=== PATIENT | male | born 1980 | race Caucasian/White ===

== ENCOUNTER 2021-05-04 19:06 | Observation (INO) ==
[2021-05-04 19:15] VITALS: TEMP 97.9
--- NOTE | 2021-05-04 22:22 | Emergency Department Note ---
History of Present Illness General Chief complaint: Leg Injury/Pain Stated complaint: LEG PAIN Time Seen by Provider: 05/04/21 22:01 History of Present Illness Maximum Pain Intensity: 0 This is a 41-year-old male that presents to the emergency department via private vehicle with complaints of "leg pain, swelling". The patient notes that this past Tuesday he began with what he describes as inability to lift his right foot/ankle. Specifically he is not able to dorsiflex this region. No known trauma or injury. When he bears weight pain shoots from the ankle up the right lateral calf region to the right knee. He does note a history of DVT in the right leg in 2019 which was treated with Xarelto x2 years. He has been off of the Xarelto now for a few months. He denies any known trauma or injury. No fevers, chills, chest pain or shortness of breath. Other than the DVT he denies any pertinent past medical history, surgeries or allergies. He notes that when he is ambulating he has to lift his entire right leg so his right foot does not drag on the ground. Home Medications Medication Instructions Recorded Confirmed Type triamterene 37.5 1 tab PO DAILY 06/12/20 05/04/21 History mg-hydrochlorothiazide 25 mg tablet aspirin 81 mg tablet,delayed 81 mg PO DAILY 05/04/21 05/04/21 History release Allergies Allergy/AdvReac Type Severity Reaction Status Date / Time No Known Allergies Allergy Verified 05/04/21 22:27 Past Med/Surg History Medical History (Updated 05/05/21 @ 01:49 by Jeancarlos Car PA-C) Hx of deep venous thrombosis Surgical History No pertinent past surgical history Social History Smoking Status: Never smoker Feels Safe at Home: Yes Review of Systems A total of 6 systems reviewed and were otherwise negative Physical Exam Vital Signs Vital Signs - 24 hr 05/04/21 19:12 05/04/21 22:40 Temperature 36.6 C Temperature Source Temporal Artery Scan Pulse Rate 66 62 Pulse Rate from SpO2 Sensor 62 Respiratory Rate 16 24 Blood Pressure 134/89 142/89 H Blood Pressure Mean 104 106 Blood Pressure Position Sitting Pulse Oximetry 96 97 Oxygen Delivery Method Room Air Room Air Sepsis Recent Fever Within 48 Hours No Sepsis New/Unexplained Change in Mental Status No Sepsis Action Taken by Nursing No Action Required VITAL SIGNS - Vital signs and nursing notes were reviewed. Stable and afebrile. GENERAL -41-year-old male appearing his stated age who is in no acute distress. Communicates well with provider and answers questions appropriately. SKIN - Without rashes. No meningeal or petechial rash. The skin overlying the right lower extremity does not reveal any evidence of erythema. There is perhaps mild edema circumferentially to the right lower extremity. HEAD - NC/AT. EYES - PERRL with EOMI bilaterally. EARS - No deformities of external structures noted on gross examination bilaterally. NECK - No nuchal rigidity. LUNGS - Chest wall symmetric without accessory muscle use, intercostals retractions, or central cyanosis. Normal vesicular breath sounds CTA B/L. No wheezes, rales, or rhonchi appreciated. CARDIAC - RRR with S1/S2. No murmur, rubs, or gallops appreciated. EXTREMITIES - No clubbing or peripheral cyanosis. +5/5 strength noted in UE/LE bilaterally. Patient is not able to actively dorsiflex the right foot/ankle. Right dorsalis pedis pulse intact and symmetric compared to the left. NEUROLOGIC - Cranial nerves II through XII grossly intact. Sensory intact to light touch throughout. PSYCH - A&Ox3 and cooperates fully with examiner. Pt is very pleasant and interacts well with examiner. Medical Decision Making Laboratory Data Result diagrams: 05/04/21 22:31 05/04/21 22:31 Lab Results 05/04/21 05/04/21 05/04/21 Range/Units 22:31 22:31 22:31 WBC 5.05 (4.8-10.8) K/uL RBC 4.69 L (4.7-6.1) M/uL Hgb 15.0 (14.0-18.0) g/dL Hct 45.1 (42-52) % MCV 96.2 (80-100) fL MCH 32.0 (25-34) pg MCHC 33.3 (32-36) g/dL RDW Std Deviation 48.2 H (36.4-46.3) fL RDW Coeff of Maggie 13.7 (11.5-14.5) % Plt Count 188 (130-400) K/uL MPV 11.9 H (7.4-10.4) fL Immature Gran % (Auto) 0.0 % Neut % (Auto) 58.8 % Lymph % (Auto) 28.1 % Hutchinson % (Auto) 8.3 % Eos % (Auto) 4.6 % Baso % (Auto) 0.2 % Neut # (Auto) 2.97 (1.4-6.5) K/uL Lymph # (Auto) 1.42 (1.2-3.4) K/uL Hutchinson # (Auto) 0.42 (0.11-0.59) K/uL Eos # (Auto) 0.23 (0-0.5) K/uL Baso # (Auto) 0.01 (0-0.2) K/uL Immature Gran # (Auto) 0.00 (0.00-0.02) K/uL PT 10.3 (9.0-12.0) Seconds INR 1.0 (0.9-1.1) APTT 25.7 (21.0-31.0) Seconds PTT Ratio 1.0 Sodium 142 (136-145) mmol/L Potassium 3.5 (3.5-5.1) mmol/L Chloride 108 H (98-107) mmol/L Carbon Dioxide 28 (21-32) mmol/L Anion Gap 6.0 (3-11) BUN 18 (7-18) mg/dl Creatinine 1.05 (0.6-1.4) mg/dl Est Cr Clr Drug Dosing 123.9 ml/min Est GFR ( Amer) 102.4 ml/min Est GFR (Non-Af Amer) 88.4 ml/min BUN/Creatinine Ratio 16.9 (10-20) Glucose 130 H (70-99) mg/dl Calcium 9.0 (8.5-10.1) mg/dl Magnesium 2.2 (1.8-2.4) mg/dl Total Bilirubin 0.3 (0.2-1) mg/dl AST 28 (15-37) U/L ALT 33 (12-78) Alkaline Phosphatase 61 (45-117) U/L Total Protein 8.0 (6.4-8.2) gm/dl Albumin 3.8 (3.4-5.0) gm/dl Globulin 4.2 H (2.5-4.0) gm/dl Albumin/Globulin Ratio 0.9 (0.9-2) Imaging Data Radiologist's Impression: CT HEAD: No ICH, mass effect or edema. No evidence of acute cortical stroke. Radiologist: Dayanna Obregon M.D. Study ready at 00:13 and initial results transmitted at 00:16 US VENOUS RIGHT LOWER EXTREMITY: No acute DVT demonstrated. Radiologist: Dayanna Obregon M.D. Study ready at 21:16 and initial results transmitted at 21:19 [facility] Narrative Patient was seen and evaluated as above in room B12. Review was performed of triage nursing notes and vital signs. I did review pertinent previous visits and patient history. After obtaining a thorough history and physical examination the above work up was performed. Patient presents to us today with dropfoot to the right lower extremity. No known trauma or injury. Vital signs stable. No other areas involved on my exam. No other focal neurologic deficit. Patient does have some mild back pain. Options of care were discussed with the patient. IV access was established. Labs were drawn. Case also discussed with the attending physician. Patient was seen during a period of high volume and acuity. He already had an ultrasound performed of the right lower extremity in triage. The ultrasound results are as above. I also discussed this with the on-call radiologist noting the patient's history of DVT and patient reporting chronic thrombus. It does appear that he does indeed have a chronic thrombus but this clot burden has not increased since previous exam and there is no acute DVT. Patient sent for CTA of the head and neck to further eval emergent etiologies of his presentation. Unfortunately the patient removed himself from the CT scan table right after they injected the dye therefore they were not able to proceed with the imaging. As this was a time sensitive picture, options were then to either rebolused him with the contrast to obtain the pictures versus other imaging modality. I discussed this with the patient. At this time we will refrain from recontrast bolusing him and proceed with MRIs. Case signed out to Joshua Hoyt PA-C pending MRI results. Patient may require inpatient management depending on findings. Please refer to further documentation regarding his stay. Case was discussed with the attending physician, Dr. Cano EKG was reviewed by myself and found to be sinus bradycardia at a rate of 59 beats per minute and per my interpretation reveals no ST elevation. No previous for comparison. QTc 407. QRS 86. Patient was seen during a period of high volume and acuity during the COVID-19 pandemic. GCS: 15 In the evaluation and treatment of this patient the following differential diagnoses were entertained: Compartment syndrome, compressive neuropathy, p eroneal nerve palsy, lumbar radiology, intracranial etiology, among others. Impression & Plan Right foot drop Discharge Plan Visit Data Chief Complaint: Leg Injury/Pain Stated Complaint: LEG PAIN ED Provider: Jackson Cano ED Midlevel Provider: Joshua Hoyt Discharge Problem: Right foot drop Patient Disposition: Still a Patient Condition: Good Forms Stand Alone Forms: My [facility] Prescriptions Prescriptions: No Action triamterene-hydrochlorothiazid 37.5-25 mg tablet 1 tab PO DAILY RF: 0 aspirin 81 mg Tablet,Delayed Release (Dr/Ec) 81 mg PO DAILY RF: 0 Referrals Referrals: Arvind Evangelista [Primary Care Provider] -
[2021-05-04 22:48] LABS: Basophils # (auto) 0.01 K/uL (0-0.2); Basophils % (auto) 0.2 %; Eosinophils # (auto) 0.23 K/uL (0-0.5); Eosinophils % (auto) 4.6 %; Hematocrit (blood only) 45.1 % (42-52); Lymphocytes # (auto) 1.42 K/uL (1.2-3.4); Lymphocytes % (auto) 28.1 %; Mean Corpuscular Hgb Conc 33.3 g/dL (32-36); Mean Corpuscular Volume 96.2 fL (80-100); Mean Platelet Volume 11.9 fL (7.4-10.4); Monocytes # (auto) 0.42 K/uL (0.11-0.59); Monocytes % (auto) 8.3 %; Neutrophils # (auto) 2.97 K/uL (1.4-6.5); Neutrophils % (auto) 58.8 %; Platelet Count 188 K/uL (130-400); RDW Coefficient of Variation 13.7 % (11.5-14.5); RDW Standard Deviation 48.2 fL (36.4-46.3); Red Blood Count 4.69 M/uL (4.7-6.1); White Blood Count 5.05 K/uL (4.8-10.8)
[2021-05-04 23:05] LABS: Albumin Level 3.8 gm/dl (3.4-5.0); BUN Creatinine Ratio 16.9 (10-20); Creatinine Clr Calc Pharmacy 123.9 ml/min; Est GFR (African American) 102.4 ml/min; Est GFR (Non-African American) 88.4 ml/min; Magnesium 2.2 mg/dl (1.8-2.4); Potassium 3.5 mmol/L (3.5-5.1)
[2021-05-04 23:08] LABS: Albumin Globulin Ratio 0.9 (0.9-2); Bilirubin,Total 0.3 mg/dl (0.2-1); Globulin 4.2 gm/dl (2.5-4.0)
[2021-05-04 23:10] LABS: Partial Thromboplastin Time 25.7 Seconds (21.0-31.0); Prothrombin Time 10.3 Seconds (9.0-12.0)
[2021-05-05] MEDS ORDERED: GADOBUTROL 65ML VIAL IV ONE (02:04)
[2021-05-05 03:21] LABS: Lyme Ab IgG w/WB Rflx Negative (Negative); Lyme Ab IgM w/WB Rflx Negative (Negative)
--- NOTE | 2021-05-05 04:24 | Emergency Department Note ---
Impression & Plan Right foot drop ED Provider Note Patient care was assumed from Jeancarlos Car PA-C, at the time of shift change. Please see Mr. Car's dictation for full history of present illness and emergency department course prior to my assumption of care. In short, the patient has a right foot drop that is new to him over the past 48 hours. He has had nursing protocol orders initiated, and ultrasound of the leg and CT scan of his head are without acute findings. At the time of shift change we were awaiting MRIs of his head, neck, and lumbar spine. MRI results are as below: Preliminary Findings Only See Final Report For Complete Findings MRI HEAD : Comparison: CT head 05/04/21 No acute infarct or intracranial hemorrhage. No mass effect or hydrocephalus. Minimal white matter T2/FLAIR hyperintensities, nonspecific. Preliminary Findings Only See Final Report For Complete Findings MRA HEAD : No evidence of vascular occlusion, significant stenosis, or aneurysm. Preliminary Findings Only See Final Report For Complete Findings MRA NECK : No evidence of vessel occlusion or hemodynamically significant stenosis. Preliminary Findings Only See Final Report For Complete Findings MRI L SPINE : No evidence of acute fracture. Multilevel degenerative changes. No prior provided for comparison. L3-L4, posterior disc bulge and facet arthropathy/ligamentous hypertrophy causes hzio-[id number] canal and mild bilateral foraminal stenosis. L4-L5, posterior disc bulge/extrusion and facet arthropathy/ligamentous hypertrophy causes yfuw-[id number]-elcajmnm canal and mild bilateral foraminal stenosis. L5-S1 posterior disc/osteophyte complex and facet arthropathy cause [id number]-[id number] right and mild left foraminal stenosis. Mild left lateral recess and minimal canal stenosis. Endplate degenerative changes The patient was reevaluated multiple times with course of his stay. He does not have any worsening or evolution of his symptoms. He is able to rest comfortably here in the ER bed. Overall his presentation is concerning as he does have a foot drop on exam. This could be from his L-spine, but will likely need further evaluation of his symptoms. The case was discussed with the on-call hospitalist who agreed to evaluate the patient here in the ER. Please see their dictation for further patient course, plan, and disposition. Past Med/Surg History Medical History (Updated 05/05/21 @ 01:49 by Jeancarlos Car PA-C) Hx of deep venous thrombosis Surgical History No pertinent past surgical history Social History Smoking Status: Never smoker Feels Safe at Home: Yes Allergies Allergies Allergy/AdvReac Type Severity Reaction Status Date / Time No Known Allergies Allergy Verified 05/04/21 22:27 Home Meds Home Medications Medication Instructions Recorded Confirmed triamterene 37.5 1 tab PO DAILY 06/12/20 05/04/21 mg-hydrochlorothiazide 25 mg tablet aspirin 81 mg tablet,delayed 81 mg PO DAILY 05/04/21 05/04/21 release Results & Data (ED) Vital Signs Vital Signs - 24 hr 05/04/21 19:12 05/04/21 22:15 05/04/21 22:40 Temperature 36.6 C Temperature Source Temporal Artery Scan Pulse Rate 66 78 62 Pulse Rate from SpO2 Sensor 62 Respiratory Rate 16 20 24 Blood Pressure 134/89 142/89 H Blood Pressure Mean 104 106 Blood Pressure Position Sitting Pulse Oximetry 96 98 97 Oxygen Delivery Method Room Air Room Air Room Air Sepsis Recent Fever Within 48 Hours No Sepsis New/Unexplained Change in Mental Status No Sepsis Action Taken by Nursing No Action Required 05/04/21 23:52 05/05/21 01:54 Temperature Temperature Source Pulse Rate 59 L 58 L Pulse Rate from SpO2 Sensor 57 L 58 L Respiratory Rate 21 Blood Pressure 132/79 126/72 Blood Pressure Mean 96 90 Blood Pressure Position Pulse Oximetry 96 96 Oxygen Delivery Method Room Air Room Air Sepsis Recent Fever Within 48 Hours Sepsis New/Unexplained Change in Mental Status Sepsis Action Taken by Nursing Laboratory Data Result diagrams: 05/04/21 22:31 05/04/21 22:31 Lab Results 05/04/21 05/04/21 05/04/21 Range/Units 22:31 22:31 22:31 WBC 5.05 (4.8-10.8) K/uL RBC 4.69 L (4.7-6.1) M/uL Hgb 15.0 (14.0-18.0) g/dL Hct 45.1 (42-52) % MCV 96.2 (80-100) fL MCH 32.0 (25-34) pg MCHC 33.3 (32-36) g/dL RDW Std Deviation 48.2 H (36.4-46.3) fL RDW Coeff of Maggie 13.7 (11.5-14.5) % Plt Count 188 (130-400) K/uL MPV 11.9 H (7.4-10.4) fL Immature Gran % (Auto) 0.0 % Neut % (Auto) 58.8 % Lymph % (Auto) 28.1 % Nash % (Auto) 8.3 % Eos % (Auto) 4.6 % Baso % (Auto) 0.2 % Neut # (Auto) 2.97 (1.4-6.5) K/uL Lymph # (Auto) 1.42 (1.2-3.4) K/uL Nash # (Auto) 0.42 (0.11-0.59) K/uL Eos # (Auto) 0.23 (0-0.5) K/uL Baso # (Auto) 0.01 (0-0.2) K/uL Immature Gran # (Auto) 0.00 (0.00-0.02) K/uL PT 10.3 (9.0-12.0) Seconds INR 1.0 (0.9-1.1) APTT 25.7 (21.0-31.0) Seconds PTT Ratio 1.0 Sodium 142 (136-145) mmol/L Potassium 3.5 (3.5-5.1) mmol/L Chloride 108 H (98-107) mmol/L Carbon Dioxide 28 (21-32) mmol/L Anion Gap 6.0 (3-11) BUN 18 (7-18) mg/dl Creatinine 1.05 (0.6-1.4) mg/dl Est Cr Clr Drug Dosing 123.9 ml/min Est GFR ( Amer) 102.4 ml/min Est GFR (Non-Af Amer) 88.4 ml/min BUN/Creatinine Ratio 16.9 (10-20) Glucose 130 H (70-99) mg/dl Calcium 9.0 (8.5-10.1) mg/dl Magnesium 2.2 (1.8-2.4) mg/dl Total Bilirubin 0.3 (0.2-1) mg/dl AST 28 (15-37) U/L ALT 33 (12-78) Alkaline Phosphatase 61 (45-117) U/L Total Protein 8.0 (6.4-8.2) gm/dl Albumin 3.8 (3.4-5.0) gm/dl Globulin 4.2 H (2.5-4.0) gm/dl Albumin/Globulin Ratio 0.9 (0.9-2) Lyme Disease IgG Ab (Negative) Lyme Disease IgM Ab (Negative) 05/05/21 Range/Units 02:24 WBC (4.8-10.8) K/uL RBC (4.7-6.1) M/uL Hgb (14.0-18.0) g/dL Hct (42-52) % MCV (80-100) fL MCH (25-34) pg MCHC (32-36) g/dL RDW Std Deviation (36.4-46.3) fL RDW Coeff of Maggie (11.5-14.5) % Plt Count (130-400) K/uL MPV (7.4-10.4) fL Immature Gran % (Auto) % Neut % (Auto) % Lymph % (Auto) % Nash % (Auto) % Eos % (Auto) % Baso % (Auto) % Neut # (Auto) (1.4-6.5) K/uL Lymph # (Auto) (1.2-3.4) K/uL Nash # (Auto) (0.11-0.59) K/uL Eos # (Auto) (0-0.5) K/uL Baso # (Auto) (0-0.2) K/uL Immature Gran # (Auto) (0.00-0.02) K/uL PT (9.0-12.0) Seconds INR (0.9-1.1) APTT (21.0-31.0) Seconds PTT Ratio Sodium (136-145) mmol/L Potassium (3.5-5.1) mmol/L Chloride (98-107) mmol/L Carbon Dioxide (21-32) mmol/L Anion Gap (3-11) BUN (7-18) mg/dl Creatinine (0.6-1.4) mg/dl Est Cr Clr Drug Dosing ml/min Est GFR ( Amer) ml/min Est GFR (Non-Af Amer) ml/min BUN/Creatinine Ratio (10-20) Glucose (70-99) mg/dl Calcium (8.5-10.1) mg/dl Magnesium (1.8-2.4) mg/dl Total Bilirubin (0.2-1) mg/dl AST (15-37) U/L ALT (12-78) Alkaline Phosphatase (45-117) U/L Total Protein (6.4-8.2) gm/dl Albumin (3.4-5.0) gm/dl Globulin (2.5-4.0) gm/dl Albumin/Globulin Ratio (0.9-2) Lyme Disease IgG Ab Negative (Negative) Lyme Disease IgM Ab Negative (Negative) Administered Medications Discontinued Medications Gadobutrol (Gadobutrol 65ml Vial) 10.5 ml IV ONCE ONE Stop: 05/05/21 02:05 Last Admin: 05/05/21 02:04 Dose: 10.5 ml Documented by: [id number] Discharge Plan Visit Data Chief Complaint: Leg Injury/Pain Stated Complaint: LEG PAIN ED Provider: Jackson Cano ED Midlevel Provider: Joshua Hoyt Discharge Problem: Right foot drop Patient Disposition: Still a Patient Condition: Good Forms Stand Alone Forms: [facility] Prescriptions Prescriptions: No Action triamterene-hydrochlorothiazid 37.5-25 mg tablet 1 tab PO DAILY RF: 0 aspirin 81 mg Tablet,Delayed Release (Dr/Ec) 81 mg PO DAILY RF: 0 Referrals Referrals: Arvind Evangelista [Primary Care Provider] -
--- NOTE | 2021-05-05 05:45 | History & Physical Report ---
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 mononeuropathy multiplex; MS possible as T2/flair hyperintensities seen on MRI, although these are minimal and nonspecific; Will check A1c as Charcot Moira Tooth is another potential cause for presentation, less likely Guillain [place] given unilateral presentation and no preceding viral prodrome or vaccination; also unlikely compartment syndrome as minimal pain. MRI lumbar with mild foraminal stenosis throughout and mild canal stenosis on [facility] report Ultrasound with no acute DVT - Checking folate and B12 although not anemic - could consider neurology consultation for EMG studies of the peroneal nerve - could consider vascular studies of the leg - PT ordered for brace - could consider avoiding crossing legs and knee pad over lateral knee to avoid further compression DVT: Lovenox Diet: regular Code: full History of Present Illness Chief Complaint: right foot drop Primary Care Provider: Arvind Evangelista Richard Huffman is a previously healthy individual presenting with right foot drop on Tuesday. 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 He has not had any prior URI symptoms or diagnosis of cancer or IVDU. He has not had any recent vaccinations or diarrhea. He has some mild pain on the back of his calf. Some mild back pain without radiation down his leg. No noted sensory loss or numbness or tingling down the leg. No trauma to the area. He drinks about 6 drinks/ week on average but slightly more during his conference. Allergies only to pollen. He denies groin paresthesia, bowel incontinence, or urinary retention. No tick bites. Recent travel only notable of going to [facility] for conference. Allergies Allergy/AdvReac Type Severity Reaction Status Date / Time No Known Allergies Allergy Verified 05/04/21 22:27 Home Medications Medication Instructions Recorded Confirmed Type triamterene 37.5 1 tab PO DAILY 06/12/20 05/04/21 History mg-hydrochlorothiazide 25 mg tablet aspirin 81 mg tablet,delayed 81 mg PO DAILY 05/04/21 05/04/21 History release Past Med/Surg History Medical History Hx of deep venous thrombosis Surgical History No pertinent past surgical history Social History Smoking Status: Never smoker Feels Safe at Home: Yes Review of Systems Review of Systems: Constitutional: denies fevers, chills, nausea, vomiting, weight loss not related to diet or exercise admits occasional night sweats Head: denies trauma Neurologic: denies numbness or tingling admits focal weakness ENT: denies rhinorrhea, stuffiness, sneezing GI: denies constipation : denies urinary frequency, pain or urgency Physical Exam Constitutional: well developed and well nourished; no acute distress Eyes: PERRL, conjunctivae normal, anicteric sclerae ENMT: external ear and nose normal, oropharynx normal Neck: normal visual inspection Respiratory: normal respiratory effort, lungs clear to auscultation Cardiovascular: RRR, no murmur, no edema Gastrointestinal (Abdomen): normal bowel sounds, soft, nontender, no hepatosplenomegaly Musculoskeletal: Right foot: Inspection: - swelling of the right foot Palpation: - no tenderness over the fibular head, popliteal space Strength: - able to dorsiflex slightly without gravity - toe extension intact Sensation: - intact to L4, L5, S1 Reflexes: - 2+ symmetric bilaterally at the patella Special testing: - negative Tinel over tarsal tunnel Neurologic: + focal motor deficit Psychiatric: Orientation: alert and oriented x 3 Affect: + anxious affect Results & Data Results & Data ([facility]) Vital Signs (Past 12 Hours) Vital Signs Temp Pulse Resp BP Pulse Ox 05/05/21 01:54 58 L 126/72 96 05/04/21 23:52 59 L 21 132/79 96 05/04/21 22:40 62 24 142/89 H 97 05/04/21 22:15 78 20 98 05/04/21 19:12 36.6 C 66 16 134/89 96 Code Status & VTE Plan VTE Prophylaxis Plan VTE Prophylaxis will be ordered: Yes
--- NOTE | 2021-05-05 06:59 | CT Scan Report ---
CT head/brain wo con CLINICAL HISTORY: R drop foot COMPARISON STUDY: No previous studies for comparison. CT DOSE: TECHNIQUE: Standard CT of the Brain was performed without IV contrast. A dose lowering technique was utilized adhering to the principles of ALARA. FINDINGS: Extraaxial space: There is no evidence for subdural hematoma. There are no extra-axial fluid collecti ons. Ventricles and cisterns: The ventricles are normal in size and configuration. There is no evidence f or midline shift or mass effect. Parenchyma: There is no subarachnoid or intraparenchymal hemorrhage. There is no evidence for an acu te infarct or cerebral edema. There is homogeneous attenuation of the brain parenchyma. There are no gross mass lesions. Osseous structures: There is no evidence for an acute fracture. The visualized paranasal sinuses are clear. The mastoid air cells are clear bilaterally. Soft tissues: There is no evidence for focal soft tissue swelling. IMPRESSION: No acute intracerebral pathology. ACT 112: Negative or not required by law. Electronically signed by: Kyler Beltran M.D. 05/05/2021 6:58 AM
[2021-05-05] MEDS ORDERED: POLYETHYLENE (MIRALAX) 17 GM PACK PO PRN (07:01)
[2021-05-05] MEDS ORDERED: ENOXAPARIN INJ 40 MG/0.4 ML SYR SQ SCH (07:01)
[2021-05-05] MEDS ORDERED: ACETAMINOPHEN 325 MG TAB PO PRN (07:01)
--- NOTE | 2021-05-05 07:03 | Magnetic Resonance Report ---
MR angio head wo con CLINICAL HISTORY: R foot drop, unable to dorsiflex R foot/ankle. COMPARISON: Noncontrast CT from 05/04/2021 TECHNIQUE: 3-D time of flight MR angiographic images of the brain were also obtained without IV contr ast. FINDINGS: Posterior circulation: Both vertebral arteries, the basilar artery, and both posterior cerebral arter ies are patent. Anterior circulation: Both internal carotid arteries are patent. The anterior cerebral and middle cer ebral arteries are patent bilaterally. No arterial occlusion, hemodynamically significant stenosis, aneurysm, or vascular malformation is se en. IMPRESSION: Normal MRA of the cerebral circulation for the patient's age. ACT 112: Negative or not required by law. Electronically signed by: Kyler Beltran M.D. 05/05/2021 7:01 AM
--- NOTE | 2021-05-05 07:09 | Ultrasound Report ---
US venous doppler LE RT CLINICAL HISTORY: pain, h/o dvt COMPARISON: None available at the time of this dictation. TECHNIQUE: Right lower extremity real-time compression venous ultrasound with Color Doppler imaging. Utilizing real-time ultrasonic imaging multiple real time high-resolution ultrasonic images with comp ression and noncompression maneuvers of the deep venous system in addition to color doppler imaging w ere performed from the common femoral vein through the proximal calf veins. FINDINGS: The right common femoral pain is not well visualized. There is possibly a a small chronic thrombus. T here is reversal of the right profundus femoris. The great saphenous vein is not visualized. The sherry liyah of the right lower extremity is within normal limits. Impression: Possible small right thrombus in the right common femoral vein. Reversed flow in the right profunda f emoris. ACT 112: Negative or not required by law. Electronically signed by: Mateo Núñez M.D. 05/05/2021 7:07 AM
--- NOTE | 2021-05-05 07:12 | Magnetic Resonance Report ---
NECK MRA HISTORY: R foot drop, unable to dorsiflex R foot/ankle TECHNIQUE: [id number] and gadolinium-enhanced MRA of the neck was performed both before and after the intravenous administration of contrast. All measurements were calculated based on NASCET criteri a. COMPARISON STUDY: None. FINDINGS: The aortic arch and proximal great vessels are widely patent. There is no significant sten osis, occlusion, or dissection identified within the bilateral common carotid, internal carotid, or v ertebral arteries. IMPRESSION: No significant stenosis, occlusion, or dissection identified within the carotid or vertebral arteries . ACT 112: Negative or not required by law. Electronically signed by: Kyler Beltran M.D. 05/05/2021 7:10 AM
--- NOTE | 2021-05-05 07:28 | Magnetic Resonance Report ---
MR lumbar spine wo con CLINICAL HISTORY: R foot drop, unable to dorsiflex R foot/ankle TECHNIQUE: Multiplanar sequences through the lumbar spine were obtained, without intravenous contrast . Comparison: None available at the time of this dictation. FINDINGS: The alignment is anatomical. Degenerative changes are noted in the discs and vertebral bodies. L1-L2: Small broad-based posterior disc bulge. Mild canal stenosis. No neuroforaminal stenosis. L2-L3: Small broad-based posterior disc bulge. Mild canal stenosis. No neuroforaminal stenosis. L3-L4: Large posterior disc bulge at the midline. Moderate canal stenosis. No neuroforaminal stenosis . L4-L5: Large posterior disc bulge with effacement of the spinal canal. Severe canal stenosis. Mild ne uroforaminal stenosis. L5-S1: Small, left prominent posterior disc bulge. No canal stenosis. No neuroforaminal stenosis. The spinal ligaments are intact, without evidence of disruption or abnormal signal intensity. The spi nal cord is normal in signal intensity and there is no evidence of cord contusion. There is no eviden ce of an extradural, intradural, extramedullary or intramedullary lesion. Visualized soft tissues are normal. IMPRESSION: Multilevel degenerative changes with up to severe canal stenosis and mild bilateral neuroforaminal st enosis. No definite evidence of cord edema. ACT 112: Negative or not required by law. Electronically signed by: Mateo Núñez M.D. 05/05/2021 7:27 AM
--- NOTE | 2021-05-05 07:38 | Magnetic Resonance Report ---
MR brain wo con CLINICAL HISTORY: R foot drop, unable to dorsiflex R foot/ankle. COMPARISON STUDY: CT brain from 05/04/2021 TECHNIQUE: Multiplanar multisequence images of the Brain were performed without IV contrast. Diffusi on weighted imaging and ADC mapping was also performed. FINDINGS: Extra-axial space: There is no evidence for a subdural hematoma, There are no extra-axial fluid melida ections. Ventricles and cisterns: The ventricles are normal in size and configuration. There is no evidence f or midline shift or mass effect. Parenchyma: There is no evidence for an acute hemorrhage or infarct. No acute diffusion abnormalities are noted on diffusion weighted imaging or ADC mapping. There is normal del rio-white differentiation. There is very minimal bright signal seen on FLAIR weighted sequences within the centrum semiovale an d periventricular white matter characteristic of remote small vessel disease. The sulci and gyri appe ar normal without effacement. The midline structures are unremarkable. The posterior fossa structures appear normal. There is no evidence for mass lesion. Osseous structures: The paranasal sinuses are well aerated. The mastoid air cells are well aerated. Soft tissues: No focal soft tissue abnormalities are identified. IMPRESSION: No acute intracranial abnormalities. There are minimal increased signal on FLAIR weighte d imaging characteristic of minimal remote small vessel disease. ACT 112: Negative or not required by law. Electronically signed by: Kyler Beltran M.D. 05/05/2021 7:36 AM
[2021-05-05 08:34] VITALS: BP 125/76
--- NOTE | 2021-05-05 08:53 | Medical Student Progress Note ---
Date of Service May 05, 2021 Assessment & Plan (1) Right foot drop: Plan: As of this morning he continues to have weakness with dorsiflexion but does state mild improvement since Tuesday. 1) RT Foot Drop most likely due to compression of the RT peroneal nerve, should self resolve in a few weeks. he can try to use nsaids to help Tx the discomfort. Physical therapy may also be beneficial. If the Sx continue he should return for further evaluation. Ddx 1 - lumbar radiculopathy Lumbar spine MRI does note multilevel degenerative changes. However, classic presentation of a lumbar radiculopathy is a lightning sensation of discomfort starting from the buttock and radiating down the leg. And this patient describes the pain as an ascending discomfort starting from the ankle. 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 Patient denies having any family members with genetic conditions which affect the muscles, making this Dx unlikely. Ddx 3 - ALS Classic presentation of a combination of UMN + LMN signs which spares sensation. Weakness from drop foot would suggest a LMN sign in addition his sensation is intact. However, he did not have any UMN signs on exam. And his Sx were sudden onset which would be unusual for ALS. Ddx 4 - B12 Deficiency Onset is classically insidious and progressive, whereas the Sx in this patient are sudden making this Dx unlikely. Furthermore, Sx would present BL and his drop foot is localized only to his RT foot. ddx 5 - GBS He denies any fevers or recent infections which classically precede the paralysis in GBS. In addition, GBS would lead to BL Sx and his Sx are unilateral. 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 In addition, he has no signs of facial wasting and did not complain of gonad atrophy or difficulty with vision. Classic Sx with MDT1 include: Cataracts, Toupee and Gonad Atrophy. dispo: discharge today Admission and Anticipated Discharge Date Admission Date: May 05, 2021 Subjective 41 y/o male presents with chief compliant of weakness in his RT foot. He first noticed it Tuesday morning. He did not attempt to Tx with stretching, or medications and was hopeful that the weakness self resolve. He states he just has difficulty with bringing his toes up. He denies any recent infections, fevers, chills or nightsweats that preceded the RT foot weakness. He states that the foot is not painful. But if he puts pressure on the RT foot there is a pain that starts in the ankles and moves up the posterior leg. The pain is not a lighting sensation. He denies any weakness in other parts of the body. He has not had difficulty with speaking, chewing, swallowing and blinking. He denies loss of sensation. He does not use tobacco. He drinks about 6 drinks a week. He does not use recreational drugs. No recent use of steroids. He has scoliosis. He states he has chronic back pain and that a Doctor in [place] told him he had some compression of his spinal cord and recommended that he stretch to avoid progression of Sx. FHx: Denies any family members with muscular conditions. And he does not know anyone in his family that passed at a young age. 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 He is from [place]. Physical Exam Physical Exam: General: mild distress, responding appropriately to questions, pleasant affect HEENT: PERRLA Cardio: RRR, no rubs murmurs or gallops. Equal pedal pulses. Pulm: lungs clear to auscultation BL Skin: no rashes to his legs or arms MSK: Weakness with dorsiflexion and plantarflexion of his RT foot. No issues with movement in his LT foot. At rest there was mild twitching of his toes in his RT foot. No pain to palpation of his spinal cord. No flank pain. Sensation i ntact to UE and LE. No signs of muscle wasting in his face. Neuro: CN II - XII intact. Able to make complex movements with his arms. No abnormal findings with finger to nose testing. No resting tremors. No tremors with extension of the arms. Difficult to ascertain Babinski reflexes, he appears to be negative Babinski on the LT. Possibly positive Babinski on the right, but the testing elicited discomfort that caused him to raise his entire leg off the bed. Difficult to perform reflex testing. He appears to be hypo-reflexia with his knees. Also appears to be hypo-reflexia in his forearm. He is able to blink multiple times without difficulty. Results & Data ([facility]) Vital Signs (Past 12 Hours) Vital Signs Pulse Pulse Resp BP BP Pulse Ox 05/05/21 08:33 54 L 18 125/76 97 05/05/21 08:00 70 17 97 05/05/21 07:30 53 L 13 96 05/05/21 07:00 55 L 13 97 05/05/21 04:30 58 L 19 96 05/05/21 01:54 58 L 126/72 96 05/04/21 23:52 59 L 21 132/79 96 05/04/21 22:40 62 24 142/89 H 97 05/04/21 22:15 78 20 98 Diagnostic Findings Laboratory Results WBC 5.05 K/uL (4.8-10.8) 05/04/21 22:31 RBC 4.69 M/uL (4.7-6.1) L 05/04/21 22:31 Hgb 15.0 g/dL (14.0-18.0) 05/04/21 22:31 Hct 45.1 % (42-52) 05/04/21 22:31 MCV 96.2 fL (80-100) 05/04/21 22:31 MCH 32.0 pg (25-34) 05/04/21 22:31 MCHC 33.3 g/dL (32-36) 05/04/21 22:31 RDW Std Deviation 48.2 fL (36.4-46.3) H 05/04/21 22:31 RDW Coeff of Maggie 13.7 % (11.5-14.5) 05/04/21 22:31 Plt Count 188 K/uL (130-400) 05/04/21 22:31 MPV 11.9 fL (7.4-10.4) H 05/04/21 22:31 Immature Gran % (Auto) 0.0 % 05/04/21 22:31 Neut % (Auto) 58.8 % 05/04/21 22:31 Lymph % (Auto) 28.1 % 05/04/21 22:31 Kimble % (Auto) 8.3 % 05/04/21 22:31 Eos % (Auto) 4.6 % 05/04/21 22:31 Baso % (Auto) 0.2 % 05/04/21 22:31 Neut # (Auto) 2.97 K/uL (1.4-6.5) 05/04/21 22:31 Lymph # (Auto) 1.42 K/uL (1.2-3.4) 05/04/21 22:31 Kimble # (Auto) 0.42 K/uL (0.11-0.59) 05/04/21 22:31 Eos # (Auto) 0.23 K/uL (0-0.5) 05/04/21 22:31 Baso # (Auto) 0.01 K/uL (0-0.2) 05/04/21 22:31 Immature Gran # (Auto) 0.00 K/uL (0.00-0.02) 05/04/21 22:31 PT 10.3 Seconds (9.0-12.0) 05/04/21 22: INR 1.0 (0.9-1.1) 05/04/21 22:31 APTT 25.7 Seconds (21.0-31.0) 05/04/21 22: PTT Ratio 1.0 05/04/21 22:31 Sodium 142 mmol/L (136-145) 05/04/21 22:31 Potassium 3.5 mmol/L (3.5-5.1) 05/04/21 22:31 Chloride 108 mmol/L (98-107) H 05/04/21 22:31 Carbon Dioxide 28 mmol/L (21-32) 05/04/21 22:31 Anion Gap 6.0 (3-11) 05/04/21 22:31 BUN 18 mg/dl (7-18) 05/04/21 22: Creatinine 1.05 mg/dl (0.6-1.4) 05/04/21 22:31 Est Cr Clr Drug Dosing 123.9 ml/min 05/04/21 22:31 Est GFR ( Amer) 102.4 ml/min 05/04/21 22:31 Est GFR (Non-Af Amer) 88.4 ml/min 05/04/21 22:31 BUN/Creatinine Ratio 16.9 (10-20) 05/04/21 22:31 Glucose 130 mg/dl (70-99) H 05/04/21 22:31 Calcium 9.0 mg/dl (8.5-10.1) 05/04/21 22:31 Magnesium 2.2 mg/dl (1.8-2.4) 05/04/21 22:31 Total Bilirubin 0.3 mg/dl (0.2-1) 05/04/21 22:31 AST 28 U/L (15-37) 05/04/21 22:31 ALT 33 (12-78) 05/04/21 22:31 Alkaline Phosphatase 61 U/L (45-117) 05/04/21 22:31 Total Protein 8.0 gm/dl (6.4-8.2) 05/04/21 22:31 Albumin 3.8 gm/dl (3.4-5.0) 05/04/21 22:31 Globulin 4.2 gm/dl (2.5-4.0) H 05/04/21 22:31 Albumin/Globulin Ratio 0.9 (0.9-2) 05/04/21 22:31 Lyme Disease IgG Ab Negative (Negative) 05/05/21 02:24 Lyme Disease IgM Ab Negative (Negative) 05/05/21 02:24 SARS-CoV-2, RNA, NAAT NEGATIVE (NEGATIVE) 05/05/21 04:33 Impressions Venous Doppler Study 05/04/21 20:27 FINDINGS: The right common femoral pain is not well visualized. There is possibly a a small chronic thrombus. There is reversal of the right profundus femoris. The great saphenous vein is not visualized. The remainder of the right lower extremity is within normal limits. Impression: Possible small right thrombus in the right common femoral vein. Reversed flow in the right profunda femoris. Electronically signed by: Mateo Núñez M.D. 05/05/2021 7:[address] 05/04/21 22:15 IMPRESSION: No acute intracerebral pathology. Electronically signed by: Kyler Beltran M.D. 05/05/2021 6:58 AM Brain MRI 05/05/21 00:03 IMPRESSION: No acute intracranial abnormalities. There are minimal increased signal on FLAIR weighted imaging characteristic of minimal remote small vessel disease. Electronically signed by: Kyler Beltran M.D. 05/05/2021 7:36 AM Head MRA 05/05/21 00:03 IMPRESSION: Normal MRA of the cerebral circulation for the patient's age. Electronically signed by: Kyler Beltran M.D. 05/05/2021 7:01 AM Lumbar Spine MRI 05/05/21 00:03 FINDINGS: The alignment is anatomical. Degenerative changes are noted in the discs and vertebral bodies. L1-L2: Small broad-based posterior disc bulge. Mild canal stenosis. No neuroforaminal stenosis. L2-L3: Small broad-based posterior disc bulge. Mild canal stenosis. No neuroforaminal stenosis. L3-L4: Large posterior disc bulge at the midline. Moderate canal stenosis. No neuroforaminal stenosis. L4-L5: Large posterior disc bulge with effacement of the spinal canal. Severe canal stenosis. Mild neuroforaminal stenosis. L5-S1: Small, left prominent posterior disc bulge. No canal stenosis. No neuroforaminal stenosis. The spinal ligaments are intact, without evidence of disruption or abnormal signal intensity. The spinal cord is normal in signal intensity and there is no evidence of cord contusion. There is no evidence of an extradural, intradural, extramedullary or intramedullary lesion. Visualized soft tissues are normal. IMPRESSION: Multilevel degenerative changes with up to severe canal stenosis and mild bilateral neuroforaminal stenosis. No definite evidence of cord edema. Electronically signed by: Mateo Núñez M.D. 05/05/2021 7:27 AM Neck MRA 05/05/21 00:04 IMPRESSION: No significant stenosis, occlusion, or dissection identified within the carotid or vertebral arteries. Electronically signed by: Kyler Beltran M.D. 05/05/2021 7:10 AM
[2021-05-05] MEDS ORDERED: TRIAMTERENE/HCTZ 37.5/25MG TAB PO SCH (09:00)
[2021-05-05] MEDS ORDERED: ASPIRIN 81 MG ECTAB PO SCH (09:00)
[2021-05-05 09:26] VITALS: PULSE 56; O2SAT 96
--- NOTE | 2021-05-05 10:29 | Electrocardiogram Report ---
Test Reason : Blood Pressure : / mmHG Vent. Rate : 059 BPM Atrial Rate : 059 BPM P-R Int : 138 ms QRS Dur : 086 ms QT Int : 412 ms P-R-T Axes : 026 028 -04 degrees QTc Int : 407 ms Sinus bradycardia Nonspecific T wave abnormality Abnormal ECG No previous ECGs available Confirmed by Kayden Seaman ([id number]) on 05/05/2021 10:28:45 AM Referred By: REFERRED SELF Confirmed By:Kayden Seaman
--- NOTE | 2021-05-05 10:30 | Discharge Summary ---
Date of Service May 05, 2021 Admission HPI Per Admitting Provider Richard Huffman is a previously healthy individual presenting with right foot drop on Tuesday. 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 He has not had any prior URI symptoms or diagnosis of cancer or IVDU. He has not had any recent vaccinations or diarrhea. He has some mild pain on the back of his calf. Some mild back pain without radiation down his leg. No noted sensory loss or numbness or tingling down the leg. No trauma to the area. He drinks about 6 drinks/ week on average but slightly more during his conference. Allergies only to pollen. He denies groin paresthesia, bowel incontinence, or urinary retention. No tick bites. Recent travel only notable of going to [facility] for conference. Admission Exam Per Admitting Provider Constitutional: well developed and well nourished; no acute distress Eyes: PERRL, conjunctivae normal, anicteric sclerae ENMT: external ear and nose normal, oropharynx normal Neck: normal visual inspection Respiratory: normal respiratory effort, lungs clear to auscultation Cardiovascular: RRR, no murmur, no edema Gastrointestinal (Abdomen): normal bowel sounds, soft, nontender, no hepatosplenomegaly Musculoskeletal: Right foot: Inspection: - swelling of the right foot Palpation: - no tenderness over the fibular head, p opliteal space Strength: - able to dorsiflex slightly without gra vity - toe extension intact Sensation: - intact to L4, L5, S1 Reflexes: - 2+ symmetric bilaterally at the patell a Special testing: - negative Tinel over tarsal tunnel Neurologic: + focal motor deficit Psychiatric: Orientation: alert and oriented x 3 Affect: + anxious affect Principal Diagnosis Right-sided foot drop. Discharge Exam Constitutional WD/WN, vitals as above Eyes PERRL, conjunctivae normal, anicteric sclerae Respiratory normal respiratory effort, lungs clear to auscultation Cardiovascular RRR, no murmur, no edema Chest (Breasts) normal inspection/palpation of breasts Gastrointestinal (Abdomen) normal bowel sounds, soft, nontender, no hepatosplenomegaly Musculoskeletal Extremities: + foot abnormality Right (Foot drop (greater strength with plantarflexion vs. dorsiflexion); b/l hyporeflexia at achilles, patella, biceps, triceps; abnormal gait) Gait: + antalgic gait Hip: hip normal to inspection Knee: knee normal to inspection Discharge Data Allergies Allergy/AdvReac Type Severity Reaction Status Date / Time No Known Allergies Allergy Verified 05/04/21 22:27 Consultations 05/05/21 04:28 ED Decision to Admit Stat Ordered Studies 05/04/21 20:27 US venous doppler LE RT Urgent 05/04/21 22:15 CT head/brain wo con Urgent 05/05/21 00:03 MR angio head wo con Stat MR brain wo con Stat MR lumbar spine wo con Stat 05/05/21 00:04 MR angio neck wo/w con Stat Hospital Course (1) Right foot drop: Previously healthy 41 yo M w/ prior DVT presents with right foot drop Right foot drop, 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 mononeuropathy multiplex; MS possible as T2/flair hyperintensities seen on MRI, although these are minimal and nonspecific; Will check A1c as Charcot Moira Tooth is another potential cause for presentation, less likely Guillain [place] given unilateral presentation and no preceding viral prodrome or vaccination; also unlikely compartment syndrome as minimal pain. MRI lumbar with mild foraminal stenosis throughout and mild canal stenosis on [facility] report Ultrasound with no acute DVT - Checking folate and B12 although not anemic - could consider neurology consultation for EMG studies of the peroneal nerve - could consider vascular studies of the leg - PT ordered for brace - could consider avoiding crossing legs and knee pad over lateral knee to avoid further compression - Neurology consulted: likely peroneal nerve injury; okay to discharge, can follow up outpatient. DVT: Lovenox Diet: regular Code: full Total Time Total Time Spent Total Time Spent (In Minutes): <30 Discharge Plan Discharge Items Patient Disposition: Home - Self-Care Reason For Visit: RIGHT FOOT DROP Discharge Diagnosis: Right foot drop Condition on Discharge: Good Activity: Per Instructions section Non-emergency contact: Neurologist Call non-emergency contact if: your symptoms worsen Follow-up/Referrals: Arvind Evangelista [Primary Care Provider] - Diet: Regular Addtl Attending Provider Instructions: You were admitted to the hospital for a right foot drop. You were evaluated with imaging and lab work. You were also evaluated by a neurologist. Your symptoms appear consistent with a peroneal nerve impingement or injury. Therefore, you are safe to be discharged home. A discharge summary will be sent to your primary care physician to ensure continuity of care. Please bring this discharge summary with you to your next office appointment so that your provider can review it at that time. Follow-up appointments: * Make a follow-up appointment with your PCP within the next week. It is very important that you follow up with them shortly after discharge from the hospital. * Keep all your follow-up appointments as already scheduled. If you cannot make an appointment, notify your provider. CONTACT YOUR PRIMARY CARE PROVIDER if you experience any of the following: * Sudden incidence of foot pain * Weakness that spreads up your right leg or to both feet. * Difficulty following your treatment plan, or difficulty taking medications CALL 911 OR GO TO THE EMERGENCY DEPARTMENT if you experience any of the following: * Sudden, severe abdominal pain or nausea/vomiting * Severe chest pain, or chest pain that radiates (moves) to your jaw or arm * Sudden, severe shortness of breath or difficulty breathing Thank you for allowing us to participate in your care. Pending Studies at Discharge: No Stand-Alone Forms: My [facility] [employer], Smoking Cessation Medications and DC Order Prescriptions: Continued triamterene-hydrochlorothiazid 37.5-25 mg tablet 1 tab PO DAILY RF: 0 aspirin 81 mg Tablet,Delayed Release (Dr/Ec) 81 mg PO DAILY RF: 0 Discharge Orders: Discharge Order (Routine); Ordered 05/05/21 Ordered By: Eileen Salazar/Other Patient Handouts: ED Foot Drop Admission Data Admit Date/Time: 05/05/21 05:06 Attending Provider: Mark Jimenez Admit Provider: Bob Hinson Primary Care Provider: Arvind Evangelista Other Providers: Gelacio Ramos Other Interventions: Discharge Summary Assessment (RN) Last Done: 05/05/21 11:08 Supervising Physician Co-Signing Physician Notes Chart reviewed, case discussed at length with Jim brower and Dr. garcia Patient was for discharge to home, as we were discussing the situation, it was clear that the patient would be safe for home/outpatient PT/outpatient follow- upafter discussion of the situations of several patients, we proceeded to his r oom first, but the discharge process was surprisingly efficient, and he had actually left the building before I was able to physically see him. as above Resident Activity Tracking Resident Involvement: Resident Care Provided Care Provided: Adult Hospital Medicine
--- NOTE | 2021-05-05 15:50 | Discharge Summary ---
Date of Service May 05, 2021 Admission HPI Per Admitting Provider Richard Huffman is a previously healthy individual presenting with right foot drop on Tuesday. 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 He has not had any prior URI symptoms or diagnosis of cancer or IVDU. He has not had any recent vaccinations or diarrhea. He has some mild pain on the back of his calf. Some mild back pain without radiation down his leg. No noted sensory loss or numbness or tingling down the leg. No trauma to the area. He drinks about 6 drinks/ week on average but slightly more during his conference. Allergies only to pollen. He denies groin paresthesia, bowel incontinence, or urinary retention. No tick bites. Recent travel only notable of going to [facility] for conference. Admission Exam (Per Admitting) Constitutional Constitutional: well developed and well nourished; no acute distress Eyes: PERRL, conjunctivae normal, anicteric sclerae ENMT: external ear and nose normal, oropharynx normal Neck: normal visual inspection Respiratory: normal respiratory effort, lungs clear to auscultation Cardiovascular: RRR, no murmur, no edema Gastrointestinal (Abdomen): normal bowel sounds, soft, nontender, no hepatosplenomegaly Musculoskeletal: Right foot: Inspection: - swelling of the right foot Palpation: - no tenderness over the fibular head, p opliteal space Strength: - able to dorsiflex slightly without gra vity - toe extension intact Sensation: - intact to L4, L5, S1 Reflexes: - 2+ symmetric bilaterally at the patell a Special testing: - negative Tinel over tarsal tunnel Neurologic: + focal motor deficit Psychiatric: Orientation: alert and oriented x 3 Affect: + anxious affect Discharge Data Consultations 05/05/21 04:28 ED Decision to Admit Stat Hospital Course (1) Right foot drop: Impressions Venous Doppler Study 05/04/21 20:27 US venous doppler LE RT CLINICAL HISTORY: pain, h/o dvt COMPARISON: None available at the time of this dictation. TECHNIQUE: Right lower extremity real-time compression venous ultrasound with Color Doppler imaging. Utilizing real-time ultrasonic imaging multiple real time high-resolution ultrasonic images with compression and noncompression maneuvers of the deep venous system in addition to color doppler imaging were performed from the common femoral vein through the proximal calf veins. FINDINGS: The right common femoral pain is not well visualized. There is possibly a a small chronic thrombus. There is reversal of the right profundus femoris. The great saphenous vein is not visualized. The remainder of the right lower extremity is within normal limits. Impression: Possible small right thrombus in the right common femoral vein. Reversed flow in the right profunda femoris. ACT 112: Negative or not required by law. Electronically signed by: Mateo Núñez M.D. 05/05/2021 7:[address] 05/04/21 22:15 CT head/brain wo con CLINICAL HISTORY: R drop foot COMPARISON STUDY: No previous studies for comparison. CT DOSE: TECHNIQUE: Standard CT of the Brain was performed without IV contrast. A dose lowering technique was utilized adhering to the principles of ALARA. FINDINGS: Extraaxial space: There is no evidence for subdural hematoma. There are no extra-axial fluid collections. Ventricles and cisterns: The ventricles are normal in size and configuration. There is no evidence for midline shift or mass effect. Parenchyma: There is no subarachnoid or intraparenchymal hemorrhage. There is no evidence for an acute infarct or cerebral edema. There is homogeneous attenuation of the brain parenchyma. There are no gross mass lesions. Osseous structures: There is no evidence for an acute fracture. The visualized paranasal sinuses are clear. The mastoid air cells are clear bilaterally. Soft tissues: There is no evidence for focal soft tissue swelling. IMPRESSION: No acute intracerebral pathology. ACT 112: Negative or not required by law. Electronically signed by: Kyler Beltran M.D. 05/05/2021 6:58 AM Brain MRI 05/05/21 00:03 MR brain wo con CLINICAL HISTORY: R foot drop, unable to dorsiflex R foot/ankle. COMPARISON STUDY: CT brain from 05/04/2021 TECHNIQUE: Multiplanar multisequence images of the Brain were performed without IV contrast. Diffusion weighted imaging and ADC mapping was also performed. FINDINGS: Extra-axial space: There is no evidence for a subdural hematoma, There are no extra-axial fluid collections. Ventricles and cisterns: The ventricles are normal in size and configuration. There is no evidence for midline shift or mass effect. Parenchyma: There is no evidence for an acute hemorrhage or infarct. No acute diffusion abnormalities are noted on diffusion weighted imaging or ADC mapping. There is normal del rio-white differentiation. There is very minimal bright signal seen on FLAIR weighted sequences within the centrum semiovale and periventricular white matter characteristic of remote small vessel disease. The sulci and gyri appear normal without effacement. The midline structures are unremarkable. The posterior fossa structures appear normal. There is no evidence for mass lesion. Osseous structures: The paranasal sinuses are well aerated. The mastoid air cells are well aerated. Soft tissues: No focal soft tissue abnormalities are identified. IMPRESSION: No acute intracranial abnormalities. There are minimal increased signal on FLAIR weighted imaging characteristic of minimal remote small vessel disease. ACT 112: Negative or not required by law. Electronically signed by: Kyler Beltran M.D. 05/05/2021 7:36 AM Head MRA 05/05/21 00:03 MR angio head wo con CLINICAL HISTORY: R foot drop, unable to dorsiflex R foot/ankle. COMPARISON: Noncontrast CT from 05/04/2021 TECHNIQUE: 3-D time of flight MR angiographic images of the brain were also obtained without IV contrast. FINDINGS: Posterior circulation: Both vertebral arteries, the basilar artery, and both posterior cerebral arteries are patent. Anterior circulation: Both internal carotid arteries are patent. The anterior cerebral and middle cerebral arteries are patent bilaterally. No arterial occlusion, hemodynamically significant stenosis, aneurysm, or vas cular malformation is seen. IMPRESSION: Normal MRA of the cerebral circulation for the patient's age. ACT 112: Negative or not required by law. Electronically signed by: Kyler Beltran M.D. 05/05/2021 7:01 AM Lumbar Spine MRI 05/05/21 00:03 MR lumbar spine wo con CLINICAL HISTORY: R foot drop, unable to dorsiflex R foot/ankle TECHNIQUE: Multiplanar sequences through the lumbar spine were obtained, without intravenous contrast. Comparison: None available at the time of this dictation. FINDINGS: The alignment is anatomical. Degenerative changes are noted in the discs and vertebral bodies. L1-L2: Small broad-based posterior disc bulge. Mild canal stenosis. No neuroforaminal stenosis. L2-L3: Small broad-based posterior disc bulge. Mild canal stenosis. No neuroforaminal stenosis. L3-L4: Large posterior disc bulge at the midline. Moderate canal stenosis. No neuroforaminal stenosis. L4-L5: Large posterior disc bulge with effacement of the spinal canal. Severe canal stenosis. Mild neuroforaminal stenosis. L5-S1: Small, left prominent posterior disc bulge. No canal stenosis. No neuroforaminal stenosis. The spinal ligaments are intact, without evidence of disruption or abnormal signal intensity. The spinal cord is normal in signal intensity and there is no evidence of cord contusion. There is no evidence of an extradural, intradural, extramedullary or intramedullary lesion. Visualized soft tissues are normal. IMPRESSION: Multilevel degenerative changes with up to severe canal stenosis and mild bilateral neuroforaminal stenosis. No definite evidence of cord edema. ACT 112: Negative or not required by law. Electronically signed by: Mateo Núñez M.D. 05/05/2021 7:27 AM Neck MRA 05/05/21 00:04 NECK MRA HISTORY: R foot drop, unable to dorsiflex R foot/ankle TECHNIQUE: [id number] and gadolinium-enhanced MRA of the neck was performed both before and after the intravenous administration of contrast. All measurements were calculated based on NASCET criteria. COMPARISON STUDY: None. FINDINGS: The aortic arch and proximal great vessels are widely patent. There is no significant stenosis, occlusion, or dissection identified within the bilateral common carotid, internal carotid, or vertebral arteries. IMPRESSION: No significant stenosis, occlusion, or dissection identified within the carotid or vertebral arteries. ACT 112: Negative or not required by law. Electronically signed by: Kyler Beltran M.D. 05/05/2021 7:10 AM As of this morning he continues to have weakness with dorsiflexion but does state mild improvement since Tuesday. 1) RT Foot Drop most likely due to compression of the RT peroneal nerve, should self resolve in a few weeks. he can try to use nsaids to help Tx the discomfort. Physical therapy may also be beneficial. If the Sx continue he should return for further evaluation. Ddx 1 - lumbar radiculopathy Lumbar spine MRI does note multilevel degenerative changes. However, classic presentation of a lumbar radiculopathy is a lightning sensation of discomfort starting from the buttock and radiating down the leg. And this patient describes the pain as an ascending discomfort starting from the ankle. 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 Patient denies having any family members with genetic conditions which affect the muscles, making this Dx unlikely. Ddx 3 - ALS Classic presentation of a combination of UMN + LMN signs which spares sensation. Weakness from drop foot would suggest a LMN sign in addition his sensation is intact. However, he did not have any UMN signs on exam. And his Sx were sudden onset which would be unusual for ALS. Ddx 4 - B12 Deficiency Onset is classically insidious and progressive, whereas the Sx in this patient are sudden making this Dx unlikely. Furthermore, Sx would present BL and his drop foot is localized only to his RT foot. ddx 5 - GBS He denies any fevers or recent infections which classically precede the paralysis in GBS. In addition, GBS would lead to BL Sx and his Sx are unilateral. 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 In addition, he has no signs of facial wasting and did not complain of gonad atrophy or difficulty with vision. Classic Sx with MDT1 include: Cataracts, Toupee and Gonad Atrophy. dispo: discharge today Supervising Physician Co-Signing Physician Notes Chart reviewed, case discussed at length with Jim brower and Dr. garcia Patient was for discharge to home, as we were discussing the situation, it was clear that the patient would be safe for home/outpatient PT/outpatient follow- upafter discussion of the situations of several patients, we proceeded to his room first, but the discharge process was surprisingly efficient, and he had actually left the building before I was able to physically see him. as above
--- NOTE | 2021-05-06 05:56 | Billing Data ---
Date of Service May 06, 2021 Coding Level of Care Code INT OBSERVATION CARE 70M LVL 3
== END 2021-05-05 10:50 | disposition home or self-care (01) ==
LOC: EDINP 19:06 → ED 19:06 → SUATTDRO 05-05 05:06 → EDINP 05-05 06:03

== ENCOUNTER 2025-01-10 10:01 | Observation (INO) ==
[2025-01-10 11:05] LABS: Hematocrit (blood only) 49.8 % (42.0-52.0); Hemoglobin 17.2 g/dl (14.0-18.0); Immature Granulocytes # (auto) 0.01 K/uL (0.01-0.20); Immature Granulocytes % (auto) 0.3 %; Mean Corpuscular Hemoglobin 32.1 pg (25.0-34.0); Mean Corpuscular Volume 93.1 fL (80.0-100.0); Platelet Count 110 K/uL (130-400); RDW Standard Deviation 44.1 fL (36.4-46.3); Red Blood Count 5.35 M/uL (4.70-6.10); White Blood Count 3.77 K/ul (4.8-10.8)
--- NOTE | 2025-01-10 11:05 | XRay Report ---
XR chest 1V portable CLINICAL HISTORY: chest pain, shortness of breath COMPARISON STUDY: 01/09/2024 FINDINGS: The heart remains mildly enlarged. There is no failure. There is no focal pulmonary consoli dation. There are no pleural effusions. There is a small area of subsegmental atelectasis at the left lung base. IMPRESSION: No active disease in the chest. ACT 112: Negative or not required by law. Electronically signed by: Giuseppe Diego M.D. 01/10/2025 11:03 AM
--- NOTE | 2025-01-10 11:07 | Electrocardiogram Report ---
Test Reason : Blood Pressure : */* mmHG Vent. Rate : 72 BPM Atrial Rate : 72 BPM P-R Int : 128 ms QRS Dur : 90 ms QT Int : 364 ms P-R-T Axes : 38 45 16 degrees QTcB Int : 398 ms Normal sinus rhythm Normal ECG When compared with ECG of 09-Jan-2024 09:26, No significant change was found Confirmed by Kayden Seaman ([id number]) on 01/10/2025 11:07:49 AM Referred By: Confirmed By: Kayden Seaman
[2025-01-10 11:23] LABS: Alanine Aminotransferase 35.0 U/L (7-52); Albumin Globulin Ratio 1.4 (0.9-2); Alkaline Phosphatase 47.0 U/L (34-104); Anion Gap 8.0 (3-11); Bilirubin,Total 0.6 mg/dl (0.2-1.0); Blood Urea Nitrogen 23.0 mg/dl (6-23); Calcium 8.0 mg/dl (8.6-10.3); Carbon Dioxide 26.0 mmol/L (21-32); Chloride 100.0 mmol/L (98-107); Creatinine Clr Calc Pharmacy 79.7 ml/min; Globulin 3.1 gm/dl (2.5-4.0); Glucose 128.0 mg/dl (70-99(Fasting)); Potassium 3.6 mmol/L (3.5-5.1); Sodium 134.0 mmol/L (136-145); Total Protein 7.3 gm/dl (6.0-8.3)
[2025-01-10 11:45] LABS: Influenza A virus by PCR Negative (Neg); Influenza B virus by PCR Negative (Neg); SARS CoV2 RNA(COVID-19) Ceph NEGATIVE (Negative)
[2025-01-10] MEDS: OPTIRAY 320 125ml IV ONE (12:08)
--- NOTE | 2025-01-10 12:23 | Emergency Department Note ---
Impression & Plan Chest pain, Acute kidney injury ED Provider Note NAME: JOSE DE JESUS HILLMAN AGE: 44 SEX: M : 1980 ARRIVES VIA: Walk-In INFORMANT: [Patient][, ] ED PROVIDER(S): [Sarthak Kerr MD] CHIEF COMPLAINT: Chest pain, shortness of breath HPI: This is a 44-year-old male presenting for shortness of breath and chest pain. Patient notes that he has been traveling including to [place] over the past few weeks. He notes that his peers history of DVT and is not taking blood thinners. He reports he had a fever up to 102 this week. He reports feeling fairly weak this week. He reports pain with deep inspiration. No chest pain at rest. Reports some nausea without vomiting. Some diarrhea as well. No leg swelling. ROS: See above HPI for pertinent positives & negatives. A total of [10] systems reviewed and were otherwise negative. PAST MEDICAL HISTORY: [See Below] PAST SURGICAL HISTORY: [See Below] FAMILY HISTORY: [See Below] SOCIAL HISTORY: [See Below] HOME MEDICATIONS: [See Below] ALLERGIES: [See Below] VITALS: See Below PHYSICAL EXAMINATION: General: resting comfortably in no acute distress Head: Normocephalic and atraumatic Eyes: Normal inspection, extraocular muscles intact Ear, nose, throat: Normal external exam Neck: Normal range of motion Respiratory: lungs clear to auscultation bilaterally Cardiovascular: Regular rate/rhythm, no murmur GI: soft, nontender, no guarding or rebound Extremities: nontender, moves all extremities Neuro: The patient awake and alert, appropriately conversive, no focal deficits, symmetric faces Skin: Warm, dry, and intact MEDICAL DECISION MAKING: This is a 44-year-old male presented for shortness of breath and chest pain. Will perform screening blood work, EKG, chest x-ray. - Chest chest Xray independently interpreted by me showing no pneumothorax, focal opacity, or pleural effusions. - Bloodwork is reviewed showing no significant leukocytosis, anemia, electrolyte or creatinine abnormality - Troponin is elevated at 28. Otherwise D-dimer significant elevated at 1310. With patient's pleuritic chest pain, will pursue CTA pulmonary embolism protocol - CT ultimately is negative at this time - Repeat troponin is stable. -Due to patient's new troponin elevation, chest pain, will admit the patient for further evaluation. Consider demand ischemia, ACS, myocarditis, pericarditis - Care discussed with Dr. Winters Differential diagnosis: Demand ischemia, ACS, myocarditis, pericarditis Diagnostics interpreted by me: ECG: ECG independently interpreted by me with [normal sinus rhythm], rate of 71, [normal MN], incomplete right bundle branch block, [normal QTc], [no ST segment elevations consistent with STEMI criteria] Cardiac Monitoring: An order was placed for continuous cardiac monitoring. The monitor shows a rate of 62 with sinus rhythm. Past Med/Surg History Problem List (Updated 01/11/25 @ 09:25 by Sarthak Kerr MD) Acute kidney injury (Acute) Diarrhea Chest pain (Acute) Right foot drop (Acute) Peroneal neuropathy Medical History Hypertension Acquired syphilis Hx of deep venous thrombosis Surgical History Hx of eye surgery No pertinent past surgical history Social History Smoking Status: Never smoker Do You Dip or Chew Tobacco: No; Hx Alcohol Use: Yes Alcohol type: wine and hard liquor Hx Substance Use: No Preferred Language: Occitan Communication Ability: Effective Role Player Required: No Beliefs That Will Affect Care: None Current Living Situation: Alone Other Information That Helps Us Care for You: No Feels Safe at Home: Yes Safety Concerns: Feels Safe At This Time Assistive Devices: None Allergies Allergies Allergy/AdvReac Type Severity Reaction Status Date / Time pollen extracts Allergy Mild Verified 11/16/22 08:38 Home Meds Home Medications Medication Instructions Recorded Confirmed aspirin 81 mg tablet,delayed 81 mg PO DAILY 05/04/21 01/10/25 release Previous Rx's Medication Instructions Recorded triamterene 37.5 1 cap PO DAILY #30 caps 01/09/24 mg-hydrochlorothiazide 25 mg capsule Results & Data (ED) Vital Signs Vital Signs - 24 hr 01/10/25 10:04 01/10/25 10:14 01/10/25 10:15 Temperature 36.6 C Temperature Source Temporal Artery Scan Pulse Rate 88 76 Pulse Rate [Apical] Pulse Rate from SpO2 Sensor Respiratory Rate 20 Respiratory Effort / Characteristics Non-Labored Spontaneous Respiratory Depth Normal Blood Pressure 130/82 141/90 H Blood Pressure [Right Arm] Blood Pressure Mean 98 107 Blood Pressure Mean [Right Arm] Blood Pressure Position [Right Arm] Pulse Oximetry 98 Oxygen Delivery Method Room Air Sepsis Recent Fever Within 48 Hours No Sepsis New/Unexplained Change in Mental Status No Sepsis Action Taken by Nursing No Action Required 01/10/25 10:30 01/10/25 10:45 01/10/25 11:01 Temperature Temperature Source Pulse Rate 70 Pulse Rate [Apical] Pulse Rate from SpO2 Sensor 70 Respiratory Rate 17 Respiratory Effort / Characteristics Respiratory Depth Blood Pressure 137/81 135/78 132/76 Blood Pressure [Right Arm] Blood Pressure Mean 99 101 88 Blood Pressure Mean [Right Arm] Blood Pressure Position [Right Arm] Pulse Oximetry 95 Oxygen Delivery Method Sepsis Recent Fever Within 48 Hours Sepsis New/Unexplained Change in Mental Status Sepsis Action Taken by Nursing 01/10/25 11:16 01/10/25 11:24 01/10/25 11:46 Temperature Temperature Source Pulse Rate 72 Pulse Rate [Apical] Pulse Rate from SpO2 Sensor 73 Respiratory Rate 11 L Respiratory Effort / Characteristics Respiratory Depth Blood Pressure 132/80 131/81 Blood Pressure [Right Arm] Blood Pressure Mean 84 104 Blood Pressure Mean [Right Arm] Blood Pressure Position [Right Arm] Pulse Oximetry 97 Oxygen Delivery Method Sepsis Recent Fever Within 48 Hours Sepsis New/Unexplained Change in Mental Status Sepsis Action Taken by Nursing 01/10/25 11:58 01/10/25 11:58 01/10/25 12:01 Temperature Temperature Source Pulse Rate Pulse Rate [Apical] Pulse Rate from SpO2 Sensor Respiratory Rate Respiratory Effort / Characteristics SOB on Exertion Respiratory Depth Blood Pressure 118/84 Blood Pressure [Right Arm] Blood Pressure Mean 89 Blood Pressure Mean [Right Arm] Blood Pressure Position [Right Arm] Pulse Oximetry Oxygen Delivery Method Room Air Room Air Sepsis Recent Fever Within 48 Hours Sepsis New/Unexplained Change in Mental Status Sepsis Action Taken by Nursing 01/10/25 12:18 01/10/25 12:36 01/10/25 12:54 Temperature Temperature Source Pulse Rate 73 69 Pulse Rate [Apical] 73 Pulse Rate from SpO2 Sensor 69 69 Respiratory Rate 19 15 16 Respiratory Effort / Characteristics Respiratory Depth Blood Pressure Blood Pressure [Right Arm] 124/71 Blood Pressure Mean Blood Pressure Mean [Right Arm] 88 Blood Pressure Position [Right Arm] Semi-fowlers Pulse Oximetry 96 94 94 Oxygen Delivery Method Room Air Sepsis Recent Fever Within 48 Hours Sepsis New/Unexplained Change in Mental Status Sepsis Action Taken by Nursing 01/10/25 13:03 01/10/25 13:30 01/10/25 14:00 Temperature Temperature Source Pulse Rate 75 70 Pulse Rate [Apical] Pulse Rate from SpO2 Sensor 75 71 Respiratory Rate 16 22 Respiratory Effort / Characteristics Respiratory Depth Blood Pressure 128/64 126/103 H 118/69 Blood Pressure [Right Arm] Blood Pressure Mean 85 110 86 Blood Pressure Mean [Right Arm] Blood Pressure Position [Right Arm] Pulse Oximetry 94 96 Oxygen Delivery Method Sepsis Recent Fever Within 48 Hours Sepsis New/Unexplained Change in Mental Status Sepsis Action Taken by Nursing 01/10/25 14:12 Temperature Temperature Source Pulse Rate 77 Pulse Rate [Apical] Pulse Rate from SpO2 Sensor 77 Respiratory Rate 16 Respiratory Effort / Characteristics Respiratory Depth Blood Pressure Blood Pressure [Right Arm] Blood Pressure Mean Blood Pressure Mean [Right Arm] Blood Pressure Position [Right Arm] Pulse Oximetry 96 Oxygen Delivery Method Sepsis Recent Fever Within 48 Hours Sepsis New/Unexplained Change in Mental Status Sepsis Action Taken by Nursing Laboratory Data 01/11/25 07:20 01/11/25 07:20 Lab Results 01/10/25 01/10/25 01/10/25 Range/Units 10:15 10:50 10:50 WBC 3.77 L (4.8-10.8) K/ul RBC 5.35 (4.70-6.10) M/uL Hgb 17.2 (14.0-18.0) g/dl Hct 49.8 (42.0-52.0) % MCV 93.1 (80.0-100.0) fL MCH 32.1 (25.0-34.0) pg MCHC 34.5 (32.0-36.0) g/dL RDW Std Deviation 44.1 (36.4-46.3) fL RDW Coeff of Maggie 13.0 (11.5-14.5) % Plt Count 110 L (130-400) K/uL MPV 12.6 H (9.4-12.4) fL Immature Gran % (Auto) 0.3 % Neut % (Auto) 57.8 % Lymph % (Auto) 35.5 % [place] % (Auto) 6.1 % Eos % (Auto) 0.0 % Baso % (Auto) 0.3 % Neut # (Auto) 2.18 (1.40-6.50) K/uL Lymph # (Auto) 1.34 (1.20-3.40) K/uL [place] # (Auto) 0.23 (0.11-0.59) K/uL Eos # (Auto) 0.00 (0.00-0.50) K/uL Baso # (Auto) 0.01 (0.00-0.20) K/uL Immature Gran # (Auto) 0.01 (0.01-0.20) K/uL D-Dimer 1310 H* (0-500) ug/L FEU Sodium 134 L (136-145) mmol/L Potassium 3.6 (3.5-5.1) mmol/L Chloride 100 (98-107) mmol/L Carbon Dioxide 26 (21-32) mmol/L Anion Gap 8 (3-11) BUN 23 (6-23) mg/dl Creatinine 1.64 H (0.6-1.4) mg/dl Est Cr Clr Drug Dosing 79.7 ml/min eGFR 52.90 BUN/Creatinine Ratio 14.0 (10-20) Glucose 128 H (70-99(Fasting)) mg/dl Lactate 1.2 (0.4-2.0) mmol/L Calcium 8.0 L (8.6-10.3) mg/dl Total Bilirubin 0.6 (0.2-1.0) mg/dl AST 41 H (13-39) U/L ALT 35 (7-52) U/L Alkaline Phosphatase 47 (34-104) U/L Troponin I High Sens 28.1 H (0-20) pg/ml Total Protein 7.3 (6.0-8.3) gm/dl Albumin 4.2 (3.4-5.0) gm/dl Globulin 3.1 (2.5-4.0) gm/dl Albumin/Globulin Ratio 1.4 (0.9-2) Adenovirus (PCR) Not Detected (NotDetected) B. pertussis DNA (PCR) Not Detected (NotDetected) B.parapertussis DNA PCR Not Detected (NotDetected) C. pneumoniae DNA (PCR) Not Detected (NotDetected) Coronavirus OC43 (PCR) Not Detected (NotDetected) Coronavirus HKU1 (PCR) Not Detected (NotDetected) Coronavirus 229E (PCR) Not Detected (NotDetected) SARS-CoV-2 (PCR) NEGATIVE Not Detected (Negative) Coronavirus NL63 (PCR) Not Detected (NotDetected) Human Metapneumovir PCR Not Detected (NotDetected) Influenza Type A (PCR) Negative (Neg) Influenza Type B (PCR) (Neg) M. pneumoniae (PCR) (NotDetected) Parainfluenza 1 (PCR) (NotDetected) Parainfluenza 2 (PCR) (NotDetected) Parainfluenza 3 (PCR) (NotDetected) Parainfluenza 4 (PCR) (NotDetected) RSV (RT-PCR) (Neg) RSV (PCR) (NotDetected) Entero/Rhino (PCR) (NotDetected) 01/10/25 01/10/25 01/10/25 Range/Units 10:50 10:50 12:50 WBC (4.8-10.8) K/ul RBC (4.70-6.10) M/uL Hgb (14.0-18.0) g/dl Hct (42.0-52.0) % MCV (80.0-100.0) fL MCH (25.0-34.0) pg MCHC (32.0-36.0) g/dL RDW Std Deviation (36.4-46.3) fL RDW Coeff of Maggie (11.5-14.5) % Plt Count (130-400) K/uL MPV (9.4-12.4) fL Immature Gran % (Auto) % Neut % (Auto) % Lymph % (Auto) % [place] % (Auto) % Eos % (Auto) % Baso % (Auto) % Neut # (Auto) (1.40-6.50) K/uL Lymph # (Auto) (1.20-3.40) K/uL [place] # (Auto) (0.11-0.59) K/uL Eos # (Auto) (0.00-0.50) K/uL Baso # (Auto) (0.00-0.20) K/uL Immature Gran # (Auto) (0.01-0.20) K/uL D-Dimer (0-500) ug/L FEU Sodium (136-145) mmol/L Potassium (3.5-5.1) mmol/L Chloride (98-107) mmol/L Carbon Dioxide (21-32) mmol/L Anion Gap (3-11) BUN (6-23) mg/dl Creatinine (0.6-1.4) mg/dl Est Cr Clr Drug Dosing ml/min eGFR BUN/Creatinine Ratio (10-20) Glucose (70-99(Fasting)) mg/dl Lactate (0.4-2.0) mmol/L Calcium (8.6-10.3) mg/dl Total Bilirubin (0.2-1.0) mg/dl AST (13-39) U/L ALT (7-52) U/L Alkaline Phosphatase (34-104) U/L Troponin I High Sens 27.5 H (0-20) pg/ml Total Protein (6.0-8.3) gm/dl Albumin (3.4-5.0) gm/dl Globulin (2.5-4.0) gm/dl Albumin/Globulin Ratio (0.9-2) Adenovirus (PCR) (NotDetected) B. pertussis DNA (PCR) (NotDetected) B.parapertussis DNA PCR (NotDetected) C. pneumoniae DNA (PCR) (NotDetected) Coronavirus OC43 (PCR) (NotDetected) Coronavirus HKU1 (PCR) (NotDetected) Coronavirus 229E (PCR) (NotDetected) SARS-CoV-2 (PCR) (Negative) Coronavirus NL63 (PCR) (NotDetected) Human Metapneumovir PCR (NotDetected) Influenza Type A (PCR) Not Detected (Neg) Influenza Type B (PCR) Negative Not Detected (Neg) M. pneumoniae (PCR) Not Detected (NotDetected) Parainfluenza 1 (PCR) Not Detected (NotDetected) Parainfluenza 2 (PCR) Not Detected (NotDetected) Parainfluenza 3 (PCR) Not Detected (NotDetected) Parainfluenza 4 (PCR) Not Detected (NotDetected) RSV (RT-PCR) Negative (Neg) RSV (PCR) Not Detected (NotDetected) Entero/Rhino (PCR) Not Detected (NotDetected) Administered Medications Melatonin (Melatonin 3 Mg Tab) 3 mg PO HS PRN PRN Reason: Sleep Stop: 02/09/25 16:47 Last Admin: 01/10/25 21:40 Dose: 3 mg Documented By: ANGELLA Discontinued Medications Lactated Ringer's (Lr) 1,000 mls @ 999 mls/hr IV .Q1H1M ONE Stop: 01/10/25 15:23 Last Infusion: 01/10/25 16:50 Dose: Infused Documented By: Admin: 01/10/25 14:46 Dose: 999 mls/hr Documented By: DIANNE Lactated Ringer's (Lr) 1,000 mls @ 125 mls/hr IV .Q8H KAMILLE Stop: 01/10/25 22:29 Last Infusion: 01/11/25 00:19 Dose: Infused Documented By: stripping machine operator: 01/10/25 14:47 Dose: 125 mls/hr Documented By: DIANNE Azithromycin (Zithromax) 500 mg in 255 mls @ 127.5 mls/hr IV NOW ONE Stop: 01/10/25 22:59 Last Infusion: 01/11/25 00:18 Dose: Infused Documented By: stripping machine operator: 01/10/25 21:40 Dose: 127.5 mls/hr Documented By: ANGELLA Ioversol (Optiray 320 125ml) 112 ml IV ONCE ONE Stop: 01/10/25 12:08 Last Admin: 01/10/25 12:08 Dose: 112 ml Documented By: KEITH Ketorolac Tromethamine (Ketorolac 30 Mg/Ml Vial) 30 mg IV NOW ONE Stop: 01/10/25 18:52 Last Admin: 01/10/25 19:09 Dose: 30 mg Documented By: ANGELLA Pantoprazole Sodium (Pantoprazole 40 Mg Tab) 40 mg PO NOW STA Stop: 01/11/25 08:31 Last Admin: 01/11/25 09:24 Dose: 40 mg Documented By: XIANG Imaging Data Radiologist's Impression: Chest X-Ray 01/10/25 10:42 XR chest 1V portable CLINICAL HISTORY: chest pain, shortness of breath COMPARISON STUDY: 01/09/2024 FINDINGS: The heart remains mildly enlarged. There is no failure. There is no focal pulmonary consolidation. There are no pleural effusions. There is a small area of subsegmental atelectasis at the left lung base. IMPRESSION: No active disease in the chest. ACT 112: Negative or not required by law. Electronically signed by: Giuseppe Diego M.D. 01/10/2025 11:03 AM Discharge Plan Visit Data Chief Complaint: Shortness of Breath/Dyspnea Stated Complaint: SOB, CHEST PAIN WHEN EXHALE ED Provider: Sarthak Kerr Discharge Problem: Chest pain, Acute kidney injury Patient Disposition: Admitted As Inpatient Condition: Fair Discharge Instructions Interventions: ED Discharge Assessment Last Done: 01/10/25 16:48 Discharge Problem: Chest pain Qualifiers: Chest pain type: chest pain on breathing Qualified Code(s): R07.1 - Chest pain on breathing
--- NOTE | 2025-01-10 12:29 | CT Scan Report ---
CT angio chest PE protocol CT DOSE: 946.85 mGy.cm HISTORY: PE; elevated D-dimer. TECHNIQUE: Multiple CTA images of the chest were obtained after the intravenous administration of 112 ml Optiray. Coronal and sagittal MIPS were obtained from the axial data set and were submitted for review. All measurements were obtained according to NASCET criteria. A dose lowering technique was u tilized adhering to the principles of ALARA. COMPARISON STUDY: 01/09/2024 FINDINGS: There is minimal dependent atelectasis in the lung bases. There is no pneumonia, pleural ef fusion, or pneumothorax. No enlarged adenopathy. No pericardial effusion. No thoracic aortic dissecti on or aneurysm. No pulmonary embolism. There are mild thoracic spine degenerative changes. IMPRESSION: No pulmonary embolism or pneumonia seen. ACT 112: Negative or not required by law. The above report was generated using voice recognition software. It may contain grammatical, syntax o r spelling errors. Electronically signed by: Vicente Stoll M.D. 01/10/2025 12:26 PM
--- NOTE | 2025-01-10 14:25 | History & Physical Report ---
Date of Service January 10, 2025 Assessment & Plan (1) Chest pain: (2) Diarrhea: (3) Acute kidney injury: Plan Richard is 44M with a PMHX of HTN who presents with Chest pain and weakness x 4 days with recent international travel. #Chest Pain - pleuritic in nature - No EKG changes, trop peaked at 28.1 then down trended to 27.5. D-dimer elevated but chest CTA negative for PE or pneumonia. Low suspicion for ACS. Differential includes pericarditis (though EKG not consistent with this), viral infection, dehydration - Respiratory BioFire pending - Check echo - Monitor on Tele #Diarrhea - loose stools for greater than 1 week with international travel - Check stool studies #GENNY | HTN - Cr 1.64 on admission, baseline ~1. Suspect GENNY is prerenal in setting of dehydration from diarrhea and taking HCTZ. Did receive contrast load with CTA - 1L IVF bolus now, with additional 1L maintenance - Hold triamterene-HCTZ - AM BMP #Hx of DVT - 7 years ago after international travel, no longer on blood thinner Dispo: obs to med/tele VTE PPx: SCDs History of Present Illness Chief Complaint: Chest pain, shortness of breath Primary Care Provider: KEYA PCP Richard is 44M with a PMHX of HTN who presents with Chest pain and weakness x 4 days with recent international travel. He came back from [place] about 2 weeks ago. He felt normal while in [place]. Upon returning from [facility], he was in [place] for a few days before returning to [place]. He started feeling poorly on Sunday 01/07 with fevers (Tmax 102 F), chills, weakness, and inability to sleep. Does report diarrhea since last week - having bowel movements about 3-4 times a day. He has not noticed blood, but does not really check. He reports his stools are very liquid. He does report pain with a deep breath, mainly in the substernal/epigastric region. No pain with palpation to the area. Chest pain is worse with standing, better when lying. He felt like he was going to pass out this morning, stating it felt like it was hard to breathe. He ambulated in the ED room and denies any symptoms of presyncope. Did not take his medications this morning. He has not been taking aspirin "for awhile now." He reports a history of DVT after international travel about 7 years ago; he had unilateral calf pain at that time; no longer takes blood thinners or antiplatelets. We discussed code status and he wishes to be a full code. ED course: CTA chest Allergies Allergy/AdvReac Type Severity Reaction Status Date / Time pollen extracts Allergy Mild Verified 11/16/22 08:38 Home Medications Medication Instructions Recorded Confirmed Type aspirin 81 mg tablet,delayed 81 mg PO DAILY 05/04/21 01/10/25 History release triamterene 37.5 1 cap PO DAILY #30 caps 01/09/24 01/10/25 Rx mg-hydrochlorothiazide 25 mg capsule Past Med/Surg History Problem List (Updated 01/10/25 @ 14:23 by Briseida Champagne PA-C) Acute kidney injury Diarrhea Chest pain Right foot drop (Acute) Peroneal neuropathy Medical History Hypertension Acquired syphilis Hx of deep venous thrombosis Surgical History Hx of eye surgery No pertinent past surgical history Social History Smoking Status: Never smoker Do You Dip or Chew Tobacco: No; Hx Alcohol Use: Yes Alcohol type: wine and hard liquor Hx Substance Use: No Preferred Language: [place] Citizen Communication Ability: Effective Mitering Machine Operator Required: No Beliefs That Will Affect Care: None Current Living Situation: Alone Other Information That Helps Us Care for You: No Feels Safe at Home: Yes Safety Concerns: Feels Safe At This Time Assistive Devices: None Review of Systems Review of Systems: All systems reviewed & are unremarkable except as noted in Subjective Physical Exam Physical Exam: General: No acute distress, nondiaphoretic, well-developed, well-nourished. Skin: Warm, dry. No rashes or peripheral edema noted. Cardiac: Regular rate and rhythm without murmurs gallops or rubs. No pain on palpation of sternum or intercostals. Pulm: Clear to auscultation bilaterally without wheezes, rales or rhonchi. Normal respiratory effort. 96% on room air. Abdominal: Soft, nontender, nondistended. Bowel sounds present. Neuro: A&O x3. No focal neurological deficits. Results & Data Results & Data Vital Signs (Past 12 Hours) Vital Signs Temp Pulse Pulse Resp BP BP Pulse Ox 01/10/25 12:54 73 16 124/71 94 01/10/25 12:36 69 15 94 01/10/25 12:18 73 19 96 01/10/25 12:01 118/84 01/10/25 11:58 01/10/25 11:58 01/10/25 11:46 131/81 01/10/25 11:24 72 11 L 97 01/10/25 11:16 132/80 01/10/25 11:01 132/76 01/10/25 10:45 135/78 01/10/25 10:30 70 17 137/81 95 01/10/25 10:15 141/90 H 01/10/25 10:14 76 01/10/25 10:04 97.9 F 88 20 130/82 98 O2 Del Method 01/10/25 12:54 Room Air 01/10/25 12:36 01/10/25 12:18 01/10/25 12:01 01/10/25 11:58 Room Air 01/10/25 11:58 Room Air 01/10/25 11:46 01/10/25 11:24 01/10/25 11:16 01/10/25 11:01 01/10/25 10:45 01/10/25 10:30 01/10/25 10:15 01/10/25 10:14 01/10/25 10:04 Room Air Laboratory Results Reviewed CBC with differential Reviewed D-dimer Reviewed CMP, chemistries Reviewed quad screen Diagnostic Findings Reviewed CXR Reviewed chest CTA Reviewed EKG Supervising Physician Co-Signing Physician Notes Patient was seen and examined independently I discussed the case with Briseida Champagne PA-C I reviewed pertinent past medical social family history and also the plan of care and agree with the plan of care. Patient has chest pain which is nonexertional nonpleuritic constant and nonreproducible in the emergency department he had 2 troponins in the 20s no acute changes on his EKG he had a pulmonary embolism ruled out by CTA although he did have elevated D-dimer he recently had travel to and from [place]. Echocardiogram was without significant change Exam did not reveal any reproducible pain pleural or pericardial rub he had good bilateral pulses equal in his radius and dorsalis pedis Concern for possible pericarditis will try 1 dose of Toradol repeat EKG and sed rate in the morning Any exceptions will be noted below PG Care Time/CCT Total # of Minutes Spent Total Time Spent with Patient: Total time spent is greater than 50% in coordination of care (as documented) at patient's floor/unit and/or counseling patient: Coding Level of Care Code 66312 INT INP/OBS CARE 3/75MIN Diagnoses Chest pain R07.9 Diarrhea R19.7 Acute kidney injury N17.9
[2025-01-10] MEDS: LACTATED RINGER'S 1,000 ML IV ONE (14:46)
[2025-01-10] MEDS: LACTATED RINGER'S 1,000 ML IV SCH (14:47)
--- NOTE | 2025-01-10 15:51 | XCELERA ---
[id number]
[2025-01-10 16:38] LABS: Chlamydia pneumoniae PCR Not Detected (NotDetected); Coronavirus 229E PCR Not Detected (NotDetected); Coronavirus CoV-2 (COVID19)PCR Not Detected (NotDetected); Coronavirus HKU1 PCR Not Detected (NotDetected); Coronavirus NL63 PCR Not Detected (NotDetected); Coronavirus OC43PCR Not Detected (NotDetected); Human Metapneumovirus PCR Not Detected (NotDetected); Parainfluenza Virus 1 PCR Not Detected (NotDetected); Parainfluenza Virus 2 PCR Not Detected (NotDetected); Parainfluenza Virus 3 PCR Not Detected (NotDetected); Parainfluenza Virus 4 PCR Not Detected (NotDetected); Respiratory Syncytial VirusPCR Not Detected (NotDetected); Rhinovirus/Enterovirus PCR Not Detected (NotDetected)
[2025-01-10] MEDS ORDERED: ACETAMINOPHEN 325 MG TAB PO PRN (16:48)
[2025-01-10] MEDS ORDERED: ONDANSETRON INJ 2 MG/ML 2 ML VIAL IV PRN (16:48)
[2025-01-10] MEDS ORDERED: POLYETHYLENE (MIRALAX) 17 GM PACK PO PRN (16:48)
[2025-01-10] MEDS: KETOROLAC 30 MG/ML VIAL IV ONE (19:09)
[2025-01-10 20:31] LABS: Adenovirus F 40/41 PCR Not Detected (NotDetected); Campylobacter PCR Not Detected (NotDetected); Shiga-like Toxin E.coli (STEC) Not Detected (NotDetected); Vibrio species PCR Not Detected (NotDetected)
[2025-01-10 20:46] LABS: Enteroaggregative E.coli(EAEC) DETECTED (NotDetected)
[2025-01-10] MEDS: AZITHROMYCIN 500 MG/255 ML BAG IV ONE (21:40)
[2025-01-10] MEDS: MELATONIN 3 MG TAB PO PRN (21:40)
[2025-01-11 07:37] VITALS: RESP 18; TEMP 98.6; O2SAT 93
[2025-01-11 07:59] LABS: Hematocrit (blood only) 44.7 % (42.0-52.0); Hemoglobin 15.6 g/dl (14.0-18.0); Mean Corpuscular Hemoglobin 32.4 pg (25.0-34.0); Mean Corpuscular Volume 92.7 fL (80.0-100.0); RDW Standard Deviation 44.1 fL (36.4-46.3); Red Blood Count 4.82 M/uL (4.70-6.10); White Blood Count 2.78 K/ul (4.8-10.8)
[2025-01-11 08:09] LABS: Platelet Count 78 K/uL (130-400)
[2025-01-11 08:12] LABS: Anion Gap 7.0 (3-11); Blood Urea Nitrogen 20.0 mg/dl (6-23); Calcium 7.6 mg/dl (8.6-10.3); Carbon Dioxide 25.0 mmol/L (21-32); Chloride 104.0 mmol/L (98-107); Creatinine Clr Calc Pharmacy 116.8 ml/min; Glucose 103.0 mg/dl (70-99(Fasting)); Potassium 3.6 mmol/L (3.5-5.1); Sodium 136.0 mmol/L (136-145)
--- NOTE | 2025-01-11 11:11 | Discharge Summary ---
Discharge Summary Date of Service January 11, 2025 Principal Dx & Hospital Course #1 = Principal Diagnosis (1) Chest pain: (2) Other intestinal Escherichia coli infections: (3) Diarrhea: (4) Acute kidney injury: Regine Ramos is 44M with a PMHX of HTN who presents with Chest pain and weakness x 4 days with recent international travel. #Chest Pain - nonexertional, nonpleuritic, and nonreproducible. Possibly related to gastroenteritis? - No EKG changes, trop peaked at 28.1 then down trended to 27.5. D-dimer elevated but chest CTA negative for PE or pneumonia. CXR negative for acute processes - Respiratory BioFire negative - Echocardiogram with EF 55-60%, no regional wall motion abnormalities, normal LV systolic function, mild concentric LVH, no significant valvular pathology - Telemetry monitoring showed NSR 60-70s - Chest pain resolved following antibiotic administration (detailed below) #Diarrhea | EAEC Gastroenteritis - loose stools for greater than 1 week with international travel - Stool studies + EAEC - Given prolonged symptoms, started treatment with Azithromycin 500 mg x 3 days. First dose given in hospital - Encourage oral hydration, hand hygiene #GENNY | HTN - Cr 1.64 on admission, baseline ~1. Suspect GENNY is prerenal in setting of dehydration from diarrhea and taking HCTZ. Did receive contrast load with CTA - S/p 2 L IV fluid - GENNY resolved with Cr 1.12 on day of discharge - Held triamterene-HCTZ while admitted, resumed on discharge #Hx of DVT - 7 years ago after international travel, no longer on blood thinner Dispo: Discharged 01/11 VTE PPx: SCDs Notes For Next Care Provider Medication Changes From Visit Azithromycin 500 mg daily x 2 additional days Admission HPI Per Admitting Provider Richard is 44M with a PMHX of HTN who presents with Chest pain and weakness x 4 days with recent international travel. He came back from [place] about 2 weeks ago. He felt normal while in [place]. Upon returning from [place], he was in [facility] for a few days before returning to [employer]. He started feeling poorly on Sunday 01/07 with fevers (Tmax 102 F), chills, weakness, and inability to sleep. Does report diarrhea since last week - having bowel movements about 3-4 times a day. He has not noticed blood, but does not really check. He reports his stools are very liquid. He does report pain with a deep breath, mainly in the substernal/epigastric region. No pain with palpation to the area. Chest pain is worse with standing, better when lying. He felt like he was going to pass out this morning, stating it felt like it was hard to breathe. He ambulated in the ED room and denies any symptoms of presyncope. Did not take his medications this morning. He has not been taking aspirin "for awhile now." He reports a history of DVT after international travel about 7 years ago; he had unilateral calf pain at that time; no longer takes blood thinners or antiplatelets. We discussed code status and he wishes to be a full code. ED course: CTA chest Discharge Exam General: No acute distress, nondiaphoretic, well-developed, well-nourished. Skin: Warm, dry. No rashes or peripheral edema noted. Cardiac: Regular rate and rhythm without murmurs gallops or rubs. No pain on palpation of sternum or intercostals. Pulm: Clear to auscultation bilaterally without wheezes, rales or rhonchi. Normal respiratory effort. 93% on room air. Abdominal: Soft, nontender, nondistended. Bowel sounds present. Neuro: A&O x3. No focal neurological deficits. 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 This included a chest CTA that was negative for a pulmonary embolism or pneumonia, EKG which was normal, troponin enzymes that were unremarkable, echocardiogram that was unremarkable, and chest x-ray that was negative. Your kidney function was slightly worse than your normal upon presentation to the ER, this was likely due to dehydration from the diarrhea you have experienced and taking your HCTZ medication. You were given 2 L of IV fluid and your kidney function has returned to your baseline. Your stool studies were positive for enteroaggregative E. coli. This is a bacterial GI infection. This is the cause of your persistent watery diarrhea. Sometimes antibiotics are not needed for this type of infection, however antibiotics are recommended for prolonged symptoms such as yours. You were given your first dose of antibiotics for this while in the hospital and will continue taking antibiotics for the next 2 days at home to complete this course. Upon discharge from the hospital: * Take azithromycin (oral antibiotic) once daily in the evening tonight (01/11) and tomorrow evening (01/12). This is to treat your bacterial GI infection. * It is important to stay hydrated. Drink plenty of water/Gatorade to prevent dehydration. * You can eat a regular diet as tolerated. * Hand hygiene is important. Wash your hands frequently and especially after using the bathroom. I would avoid preparing food for others until your diarrhea resolves to prevent transmission of this infection. * Please follow-up with your PCP in 1-2 weeks. Please return to the hospital if you experience any of the following: Persistent vomiting, unable to maintain hydration, blood in your stools (red or black), fever greater than 100.5 F or higher, chest pain, difficulty breathing, passing out, confusion, or any other symptoms concerning for you. It was a pleasure taking care of you while you were in the hospital! Pending Studies at Discharge: No Stand-Alone Forms: My [facility], Smoking Cessation Medications and DC Order Prescriptions: New azithromycin 500 mg tablet 500 mg PO DAILY Qty: 2 0RF Continued aspirin 81 mg Tablet,Delayed Release (Dr/Ec) 81 mg PO DAILY Patient Comments: 01/10- otc unable to verify triamterene-hydrochlorothiazid 37.5-25 mg capsule 1 cap PO DAILY Qty: 30 0RF Discharge Orders: Discharge Order (Routine); Ordered 01/11/25 Ordered By: Briseida Champagne Admission Data Admit Date/Time: 01/10/25 14:37 Attending Provider: Torrey Winters Admit Provider: Torrey Winters Primary Care Provider: PCP,NO Other Providers: Torrey Winters Hospital Stay Data Consultations 01/10/25 13:45 ED Decision to Admit Stat Diagnostic Imagining Performed Chest X-Ray 01/10/25 10:42 XR chest 1V portable CLINICAL HISTORY: chest pain, shortness of breath COMPARISON STUDY: 01/09/2024 FINDINGS: The heart remains mildly enlarged. There is no failure. There is no focal pulmonary consolidation. There are no pleural effusions. There is a small area of subsegmental atelectasis at the left lung base. IMPRESSION: No active disease in the chest. ACT 112: Negative or not required by law. Electronically signed by: Giuseppe Diego M.D. 01/10/2025 11:03 AM Chest CTA 01/10/25 11:50 CT angio chest PE protocol CT DOSE: 946.85 mGy.cm HISTORY: PE; elevated D-dimer. TECHNIQUE: Multiple CTA images of the chest were obtained after the intravenous administration of 112 ml Optiray. Coronal and sagittal MIPS were obtained from the axial data set and were submitted for review. All measurements were obtained according to NASCET criteria. A dose lowering technique was utilized ad caleb to the principles of ALARA. COMPARISON STUDY: 01/09/2024 FINDINGS: There is minimal dependent atelectasis in the lung bases. There is no pneumonia, pleural effusion, or pneumothorax. No enlarged adenopathy. No pericardial effusion. No thoracic aortic dissection or aneurysm. No pulmonary embolism. There are mild thoracic spine degenerative changes. IMPRESSION: No pulmonary embolism or pneumonia seen. ACT 112: Negative or not required by law. The above report was generated using voice recognition software. It may contain grammatical, syntax or spelling errors. Electronically signed by: Vicente Stoll M.D. 01/10/2025 12:26 PM Pending Results Patient Have Any Pending Studies at Discharge: No Discharge Instructions Given to Patient (Per Discharging Provider) Richard, You were admitted to the hospital for a chest pain workup. This included a chest CTA that was negative for a pulmonary embolism or pneumonia, EKG which was normal, troponin enzymes that were unremarkable, echocardiogram that was unremarkable, and chest x-ray that was negative. Your kidney function was slightly worse than your normal upon presentation to the ER, this was likely due to dehydration from the diarrhea you have experienced and taking your HCTZ medication. You were given 2 L of IV fluid and your kidney function has returned to your baseline. Your stool studies were positive for enteroaggregative E. coli. This is a bacterial GI infection. This is the cause of your persistent watery diarrhea. Sometimes antibiotics are not needed for this type of infection, however antibiotics are recommended for prolonged symptoms such as yours. You were given your first dose of antibiotics for this while in the hospital and will continue taking antibiotics for the next 2 days at home to complete this course. Upon discharge from the hospital: * Take azithromycin (oral antibiotic) once daily in the evening tonight (01/11) and tomorrow evening (01/12). This is to treat your bacterial GI infection. * It is important to stay hydrated. Drink plenty of water/Gatorade to prevent dehydration. * You can eat a regular diet as tolerated. * Hand hygiene is important. Wash your hands frequently and especially after using the bathroom. I would avoid preparing food for others until your diarrhea resolves to prevent transmission of this infection. * Please follow-up with your PCP in 1-2 weeks. Please return to the hospital if you experience any of the following: Persistent vomiting, unable to maintain hydration, blood in your stools (red or black), fever greater than 100.5 F or higher, chest pain, difficulty breathing, passing out, confusion, or any other symptoms concerning for you. It was a pleasure taking care of you while you were in the hospital! Total Time Total Time Spent Total Time Spent (In Minutes): Greater than 30 minutes spent completing this discharge process including direct patient care, medication reconciliation, documentation, review of labs and images, and coordination of care. Coding Level of Care Code 06151 INP/OBS DISCH >30 MIN Diagnoses Chest pain R07.1 Chest pain type: chest pain on breathing Other intestinal Escherichia coli infections A04.4 Diarrhea R19.7 Acute kidney injury N17.9
[2025-01-11 11:20] VITALS: BP 133/75; PULSE 67
--- NOTE | 2025-01-11 11:21 | Electrocardiogram Report ---
Test Reason : Blood Pressure : */* mmHG Vent. Rate : 71 BPM Atrial Rate : 71 BPM P-R Int : 146 ms QRS Dur : 94 ms QT Int : 396 ms P-R-T Axes : 40 47 36 degrees QTcB Int : 430 ms Normal sinus rhythm Possible Left atrial enlargement Incomplete right bundle branch block Borderline ECG When compared with ECG of 10-Jan-2025 10:09, Incomplete right bundle branch block is now Present Confirmed by Kayden Seaman ([id number]) on 01/11/2025 11:21:40 AM Referred By: REFERRED SELF Confirmed By: Kayden Seaman
[2025-01-11] MEDS ORDERED: AZITHROMYCIN 250 MG in DEXTROSE 5% 250 ML IV SCH (21:00)
== END 2025-01-11 11:35 | disposition home or self-care (01) ==
LOC: EDINP 10:01 → ED 10:01 → 2W 16:48